=== PATIENT | female | born 1965 | race Asian ===

== ENCOUNTER 2016-07-24 14:27 | Outpatient (CLI) | payer OTHER | END 2016-07-24 14:28 | disposition home or self-care (01) | DX: Z12.31 Encounter for screening mammogram for malignant neoplasm of breast (principal) ==

== ENCOUNTER 2017-09-22 11:11 | Outpatient (CLI) | payer OTHER ==
--- NOTE | 2017-09-23 14:18 | Mammography Report ---
DIGITAL SCREENING MAMMOGRAM: 09/22/2017 CLINICAL INDICATION: A 52-year-old for screening. COMPARISON: 07/2016, 06/2015, 05/2014, 04/2013, 03/2012, 12/2010, 11/2009. TECHNIQUE: Routine CC and MLO projections as well as bilateral laterally-exaggerated craniocaudal views were obtained of the breasts. FINDINGS: Parenchymal tissue within both breasts is heterogeneously dense, which may lower the sensitivity of mammography; however, there are no dominant masses, suspicious microcalcifications, or secondary signs of malignancy. In comparison to the previous studies, there are no significant changes. IMPRESSION: NO MAMMOGRAPHIC EVIDENCE OF MALIGNANCY. NO SIGNIFICANT INTERVAL CHANGES. RECOMMENDATION: Screening mammography is recommended annually. BIRADS category 1 - negative. STANDARD QUALIFYING STATEMENTS: 1. This examination was reviewed with the aid of Computed-Aided Detection (CAD). 2. A negative or benign imaging report should not delay biopsy if clinically suspicious findings are present. Consider surgical consultation if warranted. More than 5% of cancers are not identified by imaging. 3. Dense breasts may obscure an underlying neoplasm. TD: 09/23/2017 14:17
== END 2017-09-22 11:12 | disposition home or self-care (01) ==
LOC: DI.N 11:11
PROVIDERS: ATTEND Family Medicine
DX: Z12.31 Encounter for screening mammogram for malignant neoplasm of breast (principal)
CPT/HCPCS: 77067

== ENCOUNTER 2018-09-27 13:50 | Outpatient (CLI) | payer OTHER ==
--- NOTE | 2018-09-28 09:23 | Mammography Report ---
Reason: SCREENING MAMMO Procedure Date: 09/27/2018 Accession Number: [id number] / [id number] Procedure: MGN - Screening Mammo Dig Bilat CPT Code: FULL RESULT: EXAM: Screening Mammo Dig Bilat DATE: 09/27/2018 2:22 PM CLINICAL HISTORY: Routine screening. No reported personal or family history of breast cancer. TECHNIQUE: Bilateral CC and MLO views were obtained. COMPARISON: 09/22/2017 through 06/14/2014 FINDINGS: The breasts demonstrate heterogeneously dense fibroglandular parenchyma bilaterally. Bilateral breasts: There are no suspicious masses, calcifications or areas of distortion. IMPRESSION: Negative examination RECOMMENDATION: Routine annual screening unless otherwise clinically indicated. BI-RADS CATEGORY 1: Negative STANDARD QUALIFYING STATEMENTS: 1. This examination was reviewed with the aid of Computer-Aided Detection (CAD). 2. A negative or benign imaging report should not preclude biopsy if clinically suspicious findings are present. 3. Dense breasts may obscure an underlying neoplasm. 4. This examination was reviewed without the aid of 3D breast imaging (tomosynthesis).
== END 2018-09-27 13:51 | disposition home or self-care (01) ==
LOC: DI.N 13:50
DX: Z12.31 Encounter for screening mammogram for malignant neoplasm of breast (principal)
CPT/HCPCS: 77067

== ENCOUNTER 2019-01-11 08:18 | Day surgery (SDC) | payer OTHER ==
[2019-01-11] MEDS ORDERED: LACTATED RINGERS 1,000 ML IV ONE (08:29)
[2019-01-11] MEDS ORDERED: MIDAZOLAM 2 MG/2 ML VIAL IVP ONE (09:38)
[2019-01-11] MEDS ORDERED: fentaNYL 100 MCG/2 ML VIAL IVP ONE (09:38)
[2019-01-11] MEDS ORDERED: LIDO GARGLE 30 ML BOTTLE PO ONE (09:45)
[2019-01-11] MEDS ORDERED: LIDO GARGLE 30 ML BOTTLE ONE (09:47)
[2019-01-11 10:22] VITALS: BP 131/85
== END 2019-01-11 08:19 | disposition home or self-care (01) ==
LOC: SDS 08:18
PROVIDERS: ATTEND Internal Medicine Gastroenterology
PROC: 0DB78ZX Excision of Stomach, Pylorus, Via Natural or Artificial Opening Endoscopic, Diagnostic (ICD-10-PCS; 2019-01-11)
PROC: 0DB58ZX Excision of Esophagus, Via Natural or Artificial Opening Endoscopic, Diagnostic (ICD-10-PCS; principal; 2019-01-11 09:45)
DX: K21.9 Gastro-esophageal reflux disease without esophagitis (principal); K29.50 Unspecified chronic gastritis without bleeding
CPT/HCPCS: 43239; A9270; J7120

== ENCOUNTER 2019-08-21 09:10 | Emergency (ER) | payer OTHER ==
--- NOTE | 2019-08-21 09:38 | ED Physician Documentation ---
History of Present Illness - Stated complaint Stated Complaint: FEMALE - Chief complaint Chief Complaint: UTI - Additonal information Additional information: This is a 53-year-old female presents with 2 complaints. First she developed a little bit of pain and burning with urination and some blood in her urine that began today. Second she had a cough for around 4 weeks now, and got better with treatment for bronchitis from her primary care provider but then has returned. It is nonproductive. She denies shortness of breath or chest pain. No leg swelling. No hemoptysis, no history of blood clots. She does feel like her heart is beating a bit fast this morning, which she has happens from time to time for her. She denies any history of abnormal heart rhythms or heart cardiac problems. She does have a history of GERD, she also has had a hysterectomy. No abdominal pain at this time, but last night she did have a bit little bit of suprapubic discomfort. 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 - Present Medications Home Medications: Ambulatory Orders Medication Instructions Recorded Confirmed Esomeprazole Magnesium [Nexium] 20 mg PO BID 01/10/19 01/10/19 Cefdinir 300 mg PO BID #14 capsule 08/21/19 - Allergies Allergies/Adverse Reactions: Allergies Allergy/AdvReac Type Severity Reaction Status Date / Time No Known Drug Allergies Allergy Verified 08/21/19 09:27 PD ED PE NORMAL - Vitals Vital signs reviewed: Yes - General General: Alert and oriented X 3, No acute distress - HEENT HEENT: PERRL - Neck Neck: Supple, no meningeal sign - Cardiac Cardiac: Other (Tachycardic, rate 110 on my examination, no murmurs or rubs.) - Respiratory Respiratory: Clear bilaterally - Abdomen Abdomen: Soft, Non tender, Non distended, Other (No flank pain to percussion bilaterally) - Derm Derm: Warm and dry - Extremities Extremities: No deformity, No edema, No calf tenderness / cord - Neuro Neuro: Alert and oriented X 3 - Psych Psych: Normal mood, Normal affect Results - Vitals Vitals: Vital Signs - 24 hr 08/21/19 08/21/19 09:24 11:03 Temperature 37.0 C Heart Rate 130 H 119 H Respiratory 20 16 Rate Blood Pressure 175/115 H 148/110 H O2 Saturation 99 99 Oxygen O2 Source Room air - EKG (time done) 10:05 Other comments: Other comments (Rate 113, rhythm sinus tachycardia, there is some T wave flattening in the inferior leads, no ST segment elevations or depressions. QTC is 485.) - Labs Labs: Laboratory Tests 08/21/19 09:50 Urine Color LT RED Urine Clarity HAZY Urine pH 6.5 Ur Specific Shaw <=1.005 Urine Protein TRACE Urine Glucose (UA) NEGATIVE Urine Ketones NEGATIVE Urine Occult Blood LARGE H Urine Nitrite NEGATIVE Urine Bilirubin NEGATIVE Urine Urobilinogen 0.2 (NORMAL) Ur Leukocyte Esterase SMALL H Urine RBC 0-5 Urine WBC 11-25 H Ur Squamous Epith Cells RARE Squamous Urine Bacteria Rare Ur Microscopic Review INDICATED Urine Culture Comments INDICATED - Rads (name of study) CXR Radiology: Other (No acute cardiopulmonary process) PD MEDICAL DECISION MAKING - ED course Complexity details: considered differential (Pneumonia, bronchitis, URI urinary tract infection, pyelonephritis, Lung mass, pleural effusion) ED course: Patient is tachycardic in triage, she is well-appearing on exam, she has a nontender abdominal exam, her urine does show signs of infection, she has no CVA tenderness or fever to suggest pyelonephritis. Her symptoms fit with cystitis and we will treat with a course of antibiotics. Regarding her cough, she has no chest pain, no shortness of breath, no leg swelling, no fever, normal oxygen saturation, making pneumonia unlikely, and chest x-ray is unremarkable. Given her tachycardia an EKG was obtained, shows sinus tachycardia without signs of ACS or tachydysrhythmia. On repeat examination patient continues to be well-appearing, heart rate 95-100 on my repeat evaluation. She continues to have no chest pain, no shortness of breath, no leg swelling, normal O2 saturation, making PE highly unlikely. She appears to have a URI/bronchitis and also cystitis, I discussed supportive care, return precautions and PCP follow-up and patient was discharged home in good condition Departure - Departure Disposition: 01 Home, Self Care Clinical Impression: Urinary tract infection Qualifiers: Urinary tract infection type: acute cystitis Hematuria presence: without hematuria Qualified Code(s): N30.00 - Acute cystitis without hematuria Instructions: ED UTI Cystitis Female Follow-Up: Melanie Alvarenga DO [Primary Care Provider] - Prescriptions: Cefdinir 300 mg PO BID #14 capsule Comments: You appear to have a urinary tract infection today. Please take the antibiotic as prescribed. Your chest x-ray did not show signs of pneumonia or other obvious problems with your lungs. You may use the Tessalon Perles that were prescribed to you by your primary care provider, you may also try tea and honey for your cough. If you are having worsening such as chest pain, shortness of breath, abdominal pain, or vomiting, please return to the emergency department Discharge Date/Time: 08/21/19 11:09
[2019-08-21 10:00] LABS: BILIRUBIN,URINE NEGATIVE (NEGATIVE); GLUCOSE, URINE (UA) NEGATIVE (NEGATIVE); KETONES,URINE (UA) NEGATIVE (NEGATIVE); LEUKOCYTE ESTERASE, URINE SMALL (NEGATIVE); NITRITE,URINE NEGATIVE (NEGATIVE); OCCULT BLOOD,URINE LARGE (NEGATIVE); PH,URINE 6.5 PH (5.0-7.5); PROTEIN,URINE TRACE mg/dL (NEGATIVE); UROBILINOGEN,URINE 0.2 (NORMAL) E.U./dL (NORMAL)
[2019-08-21 10:01] LABS: CLARITY,URINE HAZY (CLEAR)
[2019-08-21 10:16] LABS: RBC,URINE 0-5 /HPF (0-5)
[2019-08-21 10:17] LABS: BACTERIA,URINE Rare /HPF (None Seen); SQUAMOUS EPITHELIAL CELL,UR RARE Squamous (<= Few)
--- NOTE | 2019-08-21 10:40 | XRAY Report ---
Reason: cough Procedure Date: 08/21/2019 Accession Number: [id number] / [id number] Procedure: XR - Chest 2 View X-Ray CPT Code: 38698 Final Report FULL RESULT: EXAM: CHEST RADIOGRAPHY EXAM DATE: 08/21/2019 10:03 AM. CLINICAL HISTORY: Cough. COMPARISON: None. TECHNIQUE: 2 views. FINDINGS: Lungs/Pleura: No focal opacities. No effusions. Mediastinum: Heart and mediastinal contours are unremarkable. Other: None. IMPRESSION: No acute radiographic cardiopulmonary process RADIA
[2019-08-21] MEDS ORDERED: cephALEXin 250 MG CAPSULE PO STA (10:46)
[2019-08-21 11:04] VITALS: BP 148/110
== END 2019-08-21 11:09 | disposition home or self-care (01) ==
LOC: ED 09:10
DX: N30.00 Acute cystitis without hematuria (principal); R00.0 Tachycardia, unspecified; R05 Cough
CPT/HCPCS: 71046; 81001; 87086; 93005; 99284; A9270; 81003

== ENCOUNTER 2020-03-20 08:03 | Outpatient (CLI) | payer OTHER ==
--- NOTE | 2020-03-21 14:35 | Mammography Report ---
UNILATERAL LEFT DIGITAL DIAGNOSTIC MAMMOGRAM 3D/2D: 03/20/2020 CLINICAL: Patient returns today to evaluate a focal asymmetry in the left breast. Comparison is made to exams dated: 02/14/2020 mammogram, 09/27/2018 mammogram, 09/22/2017 mammogram, and 07/24/2016 mammogram - [facility]. There are scattered fibroglandular elements in l eft breast. There is a 5 mm oval mass with a spiculated margin in the left breast at 1 o'clock middle depth. Thi s is seen in additional views. There is architectural distortion associated with the mass. No other significant masses or calcifications are seen in the breast. IMPRESSION: INCOMPLETE: NEEDS ADDITIONAL IMAGING EVALUATION The 5 mm oval mass in the left breast is indeterminate. An ultrasound is recommended. This exam was interpreted at Station ID: [id number]. NOTE: For mammograms, a report in lay terms will be sent to the patient. Approximately 15% of breast malignancies will not be visualized mammographically. In the management of a palpable breast mass, a negative mammogram must not discourage biopsy of a clinically suspicious lesion. SUMMARY: Targeted ultrasound is recommended for further evaluation and will be scheduled immediately following this exam. Electronically Signed By: Carroll white/adrienne:03/20/2020 10:18:03 ACR BI-RADS Category 0: Incomplete 3340F PARENCHYMAL PATTERN: (A) - The breast(s) demonstrate(s) scattered fibroglandular densities. BI-RADS CATEGORY: (0) - 0 Ultrasound [id number] Immediate follow-up LATERALITY: (L)
--- NOTE | 2020-03-21 14:35 | Ultrasound Report ---
LIMITED ULTRASOUND OF LEFT BREAST AND AXILLA: 03/20/2020 CLINICAL: Patient returns today to evaluate an architectural distortion in the left breast. Comparison is made to exams dated: 03/20/2020 mammogram, 02/14/2020 mammogram, 09/27/2018 mammogram, and 09/22/2017 mammogram - [facility]. Ultrasound of the left breast 12-1 o'clock, and axilla regions was performed. Fung scale images of the real-time examination were reviewed. There is a 0.3 cm x 0.5 cm x 0.2 cm irregular mass with a spiculated margin in the left breast at 1 o 'clock middle depth 4 cm from the nipple. This irregular mass is hypoechoic with an echogenic bounda ry and posterior acoustic shadowing. This correlates with mammography findings. No significant abnormalities were seen sonographically in the left axilla. IMPRESSION: SUSPICIOUS OF MALIGNANCY The 0.3 cm x 0.5 cm x 0.2 cm irregular mass in the left breast is at a high suspicion for malignancy. An ultrasound guided biopsy is recommended. The findings and recommendations were discussed with t he patient in person by Dr. Sarkar at the time of the exam. This exam was interpreted at Station ID: [id number]. Electronically Signed By: Carroll white/adrienne:03/20/2020 10:21:44 Ultrasound BI-RADS: 4c High suspicion of malignancy BI-RADS CATEGORY: (4c) - High Susp None [id number] Immediate follow-up LATERALITY: ()
== END 2020-03-20 08:04 | disposition home or self-care (01) ==
LOC: DI 08:03
PROVIDERS: ATTEND Family Medicine
DX: N63.21 Unspecified lump in the left breast, upper outer quadrant (principal)
CPT/HCPCS: 76642

== ENCOUNTER 2020-04-04 11:55 | Outpatient (CLI) | payer OTHER ==
[2020-04-04] MEDS ORDERED: BUFFERED LIDOCAINE 10 ML SYRINGE ONE (11:57)
[2020-04-04] MEDS ORDERED: BUFFERED LIDOCAINE 10 ML SYRINGE IU ONE (16:50)
--- NOTE | 2020-04-09 08:33 | Mammography Report ---
UNILATERAL LEFT DIGITAL DIAGNOSTIC MAMMOGRAM 3D/2D: 04/04/2020 CLINICAL: Post left breast ultrasound biopsy clip placement imaging. Comparison is made to exams dated: 03/20/2020 ultrasound, 03/20/2020 mammogram, 02/14/2020 mammogram, 09/17 mammogram, 09/22/2017 mammogram, and 07/24/2016 mammogram - [facility]. There a re scattered fibroglandular elements in left breast. There is a marker clip in the appropriate position in the left breast 1 o'clock position. This marke r clip placement is at the biopsy site. IMPRESSION: POST PROCEDURE MAMMOGRAM FOR MARKER PLACEMENT There was a successful marker clip placement in the left breast 1 o'clock position central to the nip ple seen on the craniocaudal view only. This exam was interpreted at Station ID: Unknown. NOTE: For mammograms, a report in lay terms will be sent to the patient. Approximately 15% of breast malignancies will not be visualized mammographically. In the management of a palpable breast mass, a negative mammogram must not discourage biopsy of a clinically suspicious lesion. Electronically Signed By: Ligia Talley M.D. [facility]/:04/06/2020 15:32:11 ACR BI-RADS Category Post-procedure mammogram for marker placement PARENCHYMAL PATTERN: (A) - The breast(s) demonstrate(s) scattered fibroglandular densities. BI-RADS CATEGORY: () - Unspecified - other recall n/a LATERALITY: (B)
--- NOTE | 2020-04-11 07:22 | Ultrasound Report ---
ULTRASOUND GUIDED BIOPSY LEFT BREAST WITH MARKING DEVICE INSERTED AND POST DIGITAL MAMMOGRAPHIC IMAGI N04/04/2020 CLINICAL: Left breast mass. PATIENT CONSENT: Risks (minor bleeding, infection, vasovagal reaction and repeat procedure), benefits and alternatives were explained to the patient and written informed consent was obtained. Correlation is made to exams dated: 04/04/2020 mammogram, 03/20/2020 ultrasound, 03/20/2020 mammogram, mammogram, 09/27/2018 mammogram, and 09/22/2017 mammogram - [facility]. An ultrasound guided biopsy using real-time ultrasound was performed for the 0.4 cm x 0.3 cm x 0.3 cm indistinct irregular shaped mass located in the left breast at 12 o'clock posterior depth 4 cm from the nipple. This was described on the previous ultrasound report. The skin was prepped in the usual manner. Local anesthetic was administered to the access site. The abnormality was approached from the lateral aspect. A 12 gauge biopsy needle was placed adjacent to the abnormality under ultrasound guidance. Once the needle was documented to be in the correct loca tion, four specimens were obtained using a BARD biopsy device. A titanium clip was inserted into the biopsy cavity. Post procedure digital mammographic imaging was obtained. The specimens were sent t o the laboratory for pathological analysis. IMPRESSION: ULTRASOUND GUIDED BIOPSY MALIGNANT Ultrasound guided biopsy of the 0.4 cm mass in the left breast at 12 o'clock posterior depth 4 cm fro m the nipple was successful. Pathology indicates malignant invasive ductal carcinoma (ID). Pathology results are concordant with imaging findings. A surgical/oncologic consultation is recommended. This exam was interpreted at Station ID: [id number]. Ligia Toure M.D. [facility]/:04/10/2020 08:47:12 BI-RADS CATEGORY: () - Unspecified - other recall n/a LATERALITY: (B)
== END 2020-04-04 11:56 | disposition home or self-care (01) ==
LOC: DI 11:55
PROVIDERS: ATTEND Family Medicine
DX: C50.812 Malignant neoplasm of overlapping sites of left female breast (principal); Z17.0 Estrogen receptor positive status [ER+]
CPT/HCPCS: 19083

== ENCOUNTER 2020-05-12 08:23 | Outpatient (CLI) | payer OTHER ==
[2020-05-12] MEDS ORDERED: GADOBUTROL 10 MMOL/10 ML VIAL IV ONE (11:36)
--- NOTE | 2020-05-14 14:48 | MRI Report ---
BREAST MRI OF BOTH BREASTS: 05/12/2020 CLINICAL: Short term follow up for the left breast. Patient returns for additional imaging over a cindy pected mass in the left breast. Comparison is made to exams dated: 04/04/2020 ultrasound biopsy, 03/20/2020 ultrasound, and 02/14/2020 [facility]. 7 cc of gadolinium contrast was injected. Axial T1, T2, sagittal T1, and pre and post contrast T1 im ages were obtained. Bilateral background breast enhancement is minimal. Right breast: No suspicious enhancing mass or [id number]-[id number] enhancement. Left breast: There is artifact in the left breast at the 1:00 position middle to posterior depth carlita esponding to the biopsy proven neoplasm, however, there is no suspicious enhancement, possibly obscur ed by artifact, possibly removed by biopsy. Other than minimal background parenchymal enhancement, th ere are no other enhancing foci or masses in the left breast. No rau-[id number]-[id number] enhancement. No axillary or internal mammary chain adenopathy. No suspicious liver or osseous lesions visible. Inc idental note made of small pericardial effusion. IMPRESSION: KNOWN BIOPSY PROVEN MALIGNANCY 1. Biopsy marker present in the left 1:00 position without suspicious surrounding enhancement, likel y due to small size of known malignancy. 2. No other suspicious foci of enhancement in either breast. 3. No adenopathy. 4. Surgical/ oncological follow up recommended. This exam was interpreted at Station ID: [id number]. Electronically Signed By: Desiree amin/:05/14/2020 13:05:15 ACR BI-RADS Category 6: Known biopsy proven malignancy 3346F BI-RADS CATEGORY: (6) - 6 Unspecified - other recall n/a LATERALITY: (B)
== END 2020-05-12 08:24 | disposition home or self-care (01) ==
LOC: DI 08:23
PROVIDERS: ATTEND Surgery
DX: C50.912 Malignant neoplasm of unspecified site of left female breast (principal)
CPT/HCPCS: 77049

== ENCOUNTER 2020-05-24 08:52 | Outpatient (CLI) | payer OTHER | END 2020-05-24 08:53 | disposition home or self-care (01) | LOC: LAB 08:52 | PROVIDERS: ATTEND Surgery | DX: Z01.812 Encounter for preprocedural laboratory examination (principal); C50.912 Malignant neoplasm of unspecified site of left female breast; Z20.828 Contact with and (suspected) exposure to other viral communicable diseases | CPT/HCPCS: 36415; 86769 ==

== ENCOUNTER 2020-05-28 08:48 | Day surgery (SDC) | payer OTHER ==
[~2020-05-28 08:48] MED LIST: CEFAZOLIN SODIUM IN 0.9 % NACL 2 GM/100 ML BAG IV ONE
[2020-05-28] MEDS ORDERED: LACTATED RINGERS 1,000 ML IV ONE ×2 (09:00→14:40)
--- NOTE | 2020-05-28 12:36 | Nuclear Medicine Report ---
PROCEDURE: Lymph Node Scintigraphy INDICATIONS: LT BREAST CANCER RADIOPHARMACEUTICAL: 0.5-1.0 mCi Millipore filtered Tc-99m sulfur colloid. TECHNIQUE: The area around the nipple was prepped and draped in a sterile fashion. Tc-99m sulfur colloid was in jected intra-dermally in the outer edge of the areola in the left breast. Images were obtained subse quently. A body contour outline was obtained. FINDINGS: There is/are lymph node(s) in the ipsilateral axilla. IMPRESSION: Administration of radiotracer into the left breast periareolar region for intra-operativ e sentinel lymph node localization, identifying no sentinel node. Reviewed by: Bobo Johnston MD on 05/28/2020 12:35 PM PST Approved by: Bobo Johnston MD on 05/28/2020 12:35 PM PST Station ID: [id number]
[2020-05-28] MEDS ORDERED: LIDOCAINE 1% 50 ML MDV ONE (12:41)
[2020-05-28] MEDS ORDERED: BUPIVACAINE 0.5%-EPI 1:200000 PF 30 ML VIAL ONE (12:42)
--- NOTE | 2020-05-28 12:46 | ANESTHESIA ---
Pre-Anesthesia VS, & Labs - Diagnosis L breast CA - Procedure L breast lumpectomy, sentinel node biopsy Vital Signs: Temp Pulse Resp BP Pulse Ox 36.8 C 103 H 20 149/96 H 100 05/28/20 09:06 05/28/20 09:06 05/28/20 09:06 05/28/20 09:06 05/28/20 09:06 Height: 5 ft 10 in Weight (kg): 71 kg Body Mass Index: 22.4 BMI Classification: Healthy weight - NPO >8 hours Last Fluid Intake: am sips - Is Patient ?: No - Lab Results Lab results reviewed: Yes Home Medications and Allergies Home Medications: Ambulatory Orders Pantoprazole Sodium 40 mg PO DAILY 05/23/20 Lisinopril [Zestril] 5 mg PO DAILY 04/27/20 Pravastatin [Pravachol] 20 mg PO DAILY 04/27/20 Pantoprazole Sodium 40 mg PO DAILY 05/23/20 Allergies/Adverse Reactions: Allergies Allergy/AdvReac Type Severity Reaction Status Date / Time No Known Drug Allergies Allergy Verified 05/28/20 09:09 Anes History & Medical History - Anesthetic History Anesthesia Complications: reports: No previous complications (c/o sore throat after hysterectomy, no report of difficult intubation) Family history of Anesthesia Complications: Denies Family history of Malignant Hyperthermia: Denies - Medical History Cardiovascular: reports: Hypertension, High cholesterol Pulmonary: reports: None Gastrointestinal: reports: GERD Urinary: reports: None Musculoskeletal: reports: None Endocrine/Autoimmune: reports: None Skin: reports: None Smoking Status: Former smoker - Surgical History General: Colonoscopy, EGD Gynecologic: Hysterectomy Exam General: Alert, Oriented x3, Cooperative Dental: Dentures full Upper, Dentures full Lower Mouth Openin Fingerbreadth Neck Mobility: Normal Mallampati classification: II Thyromental Distance: 4-6 cm Respiratory: Lungs clear, Normal breath sounds, No respiratory distress Cardiovascular: Regular rate Neurological: Normal speech Mental/Cognitive Status: Alert/Oriented X3, Normal for patient Cognitive Status: Within normal limits Plan Anesthesia Type: General Consent for Procedure(s) Verified and Reviewed: Yes Code Status: Attempt Resuscitation ASA classification: 3-Severe systemic disease Is this case an emergency?: No
[2020-05-28] MEDS ORDERED: MIDAZOLAM 2 MG/2 ML VIAL IVP ONE (13:34)
[2020-05-28] MEDS ORDERED: LIDOCAINE-MPF 2% 5 ML VIAL IM ONE (13:34)
[2020-05-28] MEDS ORDERED: ONDANSETRON 4 MG/2 ML VIAL IVP ONE (13:34)
[2020-05-28] MEDS ORDERED: DEXAMETHASONE 4 MG/ML VIAL IVP ONE (13:34)
[2020-05-28] MEDS ORDERED: ACETAMINOPHEN 1,000 MG/100 ML 100 ML IV ONE ×2 (13:34→14:53)
[2020-05-28] MEDS ORDERED: PROPOFOL 200 MG/20 ML VIAL IVP ONE (13:34)
[2020-05-28] MEDS ORDERED: fentaNYL 100 MCG/2 ML VIAL IVP ONE (13:34)
[2020-05-28] MEDS ORDERED: METHYLENE BLUE 0.5% 50 MG/10 ML AMPULE ONE ×2 (13:44→13:51)
[2020-05-28] MEDS ORDERED: BUPIVACAINE 0.5%-EPI 1:200000 PF 30 ML VIAL SUBQ ONE ×2 (13:48)
[2020-05-28] MEDS ORDERED: LIDOCAINE 1%-EPI 1:100000 30 ML MDV SUBQ ONE ×2 (13:48)
[2020-05-28] MEDS ORDERED: METHYLENE BLUE 0.5% 50 MG/10 ML AMPULE IR ONE (13:53)
[2020-05-28] MEDS ORDERED: ePHEDrine 50 MG/ML VIAL IVP PRN (14:24)
[2020-05-28] MEDS ORDERED: NALOXONE 0.4 MG/ML VIAL IVP PRN (14:24)
[2020-05-28] MEDS ORDERED: ATROPINE ABBOJECT 1 MG/10 ML SYRINGE IVP PRN (14:24)
[2020-05-28] MEDS ORDERED: HYDROmorphone 0.5 MG/0.5 ML SYRINGE IVP PRN (14:24)
[2020-05-28] MEDS ORDERED: fentaNYL 100 MCG/2 ML VIAL IVP PRN (14:24)
[2020-05-28] MEDS ORDERED: MORPHINE 2 MG/ML CARPUJECT IVP PRN (14:24)
[2020-05-28] MEDS ORDERED: METOCLOPRAMIDE 10 MG/2 ML VIAL IVP PRN (14:24)
[2020-05-28] MEDS ORDERED: ONDANSETRON 4 MG/2 ML VIAL IVP PRN ×2 (14:24→14:42)
--- NOTE | 2020-05-28 14:36 | OPERATIVE REPORT ---
Operative Report - General Procedure Date: 05/28/20 Planned Procedure: Left breast lumpectomy and sentinel node biopsy Pre-Op Diagnosis: Small invasive carcinoma of the left breast Procedure Performed: Left breast lumpectomy. No sentinel node dissection done Post Op Diagnosis: Small invasive carcinoma of the left breast - Procedure Note Primary Surgeon: Néstor Anesthesia Provider: BAMBI Rodriguez Anesthesia Technique: General LMA Pathology: Left breast specimen to pathology in formalin Findings: 1.[place]omira node mapping reveals that the patient mapped to the mediastinal nodes. Uptake up to 500 counts per second in the mediastinal region and 0 counts per second in the axilla. 2.Clip, wire, and mass obtained within the surgical specimen. Complications: Unable to complete sentinel node dissection as the patient mapped to the mediastinum and not to the left axilla. - Other Other Information/Narrative: After obtaining informed consent, the patient was brought to the operating room and placed in the supine position on the operating table. Following successful induction of general endotracheal anesthesia, appropriate padding of all bony prominences, and placement of appropriate monitors, the left breast was prepped and draped in the standard surgical fashion. A timeout was held per scope protocol. All elements of the surgical safety checklist were followed before, during, and after the procedure. We began the procedure with An attempt to map the sentinel node. Using the neoprobe, the patient's breast mediastinum and axilla were all evaluated. The breast exhibited counts of greater than 5000, the mediastinum and the area over the mediastinal nodes exhibited counts of up to 500. Count in the left axilla was no greater then 2. Due to these findings, we aborted the plans for axillary sentinel node dissection.Proceeded with left breast lumpectomy. We turned our attention to the left breast mass.The position of the wire within the breast was noted on mammogram. Measurements were made from the center of the mass and then marked on the skin as guides for approximate margins. The area over the mass and in the periareolar region was infiltrated with a mixture of local anesthetics to cry to field block. A periareolar incision was then created in the medial aspect of the left nipple areola complex. This was carried through the skin to the marked margin. The mass was carefully dissected sharply from the dermis anteriorly and from the muscle posteriorly. The entire mass was removed sharply using the skin markings as guides to ensure an adequate margin. The retromammary bursa was not adherent to the underlying muscle. The mass was reviewed moved in a single piece in a medial to lateral fashion. It was marked with a short stitch superior, long stitch lateral, and double stitch anterior. It was finally liberated sharply and delivered into the field. The wound was checked for hemostasis. It was irrigated again with warm water. The biopsy cavity was then marked for orientation with clips peripherally and centrally.The wound was then closed in 2 layers with Vicryl and Monocryl sutures. All sponge, needle, and instrument counts were correct at the conclusion of the case. The patient was let awakened anesthesia without difficulty and taken to the postanesthesia care unit in good condition.
[2020-05-28] MEDS ORDERED: oxyCODONE 5 MG TABLET PO PRN (14:42)
[2020-05-28] MEDS ORDERED: IBUPROFEN 600 MG TABLET PO PRN (14:42)
[2020-05-28] MEDS ORDERED: ACETAMINOPHEN 325 MG TABLET PO PRN (14:42)
[2020-05-28] MEDS ORDERED: LACTATED RINGERS 1,000 ML IV SCH (15:00)
--- NOTE | 2020-05-28 15:19 | ANESTHESIA POST OP EVALUATION ---
Anesthesia Post Eval - Post Anesthesia Eval Vitals: Last Vital Signs Temp 36.6 C 05/28/20 15:07 Pulse 71 05/28/20 15:07 Resp 16 05/28/20 15:07 BP 147/108 H 05/28/20 15:07 Pulse Ox 100 05/28/20 15:07 CV Function Including HR & BP: positive: Stable Pain Control: positive: Satisfactory Nausea & Vomiting: positive: Negative Mental Status: positive: Baseline Respiratory Status: Airway Patent Hydration Status: Satisfactory Anesthesia Complications: positive: None
[2020-05-28 15:28] VITALS: BP 133/91
[2020-05-28] MEDS ORDERED: ONDANSETRON ODT 4 MG TABLET ONE (15:47)
--- NOTE | 2020-05-29 06:58 | Ultrasound Report ---
ULTRASOUND GUIDED WIRE LOCALIZATION LEFT BREAST WITH POST MAMMOGRAPHIC IMAGING AND RADIOGRAPHIC SPECI MEN IMAGIN05/28/2020 CLINICAL: Left breast ultrasound guided wire localization. Correlation is made to exams dated: 05/28/2020 mammogram, 05/12/2020 breast MRI, 04/04/2020 ultrasound biopsy, 04/04/2020 mammogram, 03/20/2020 ultrasound, and 03/20/2020 mammogram - [facility]. A wire localization using ultrasound guidance was performed for the concerning 0.3 cm x 0.2 cm x 0.3 cm indistinct irregular shaped mass located in the left breast at 12 o'clock anterior depth. This wa s described on the previous ultrasound report. The skin was prepped in the usual manner. Local anes thetic was administered to the access site. The localization was approached from the lateral aspect. A J-hook wire was inserted into the targeted area under ultrasound guidance. A sterile dressing wa s applied to the access site. Post placement mammographic imaging demonstrates the tip rests in the targeted area. IMPRESSION: WIRE LOCALIZATION Wire localization for the 0.3 cm x 0.2 cm x 0.3 cm mass in the left breast at 12 o'clock anterior dep th was successful. The imaged specimen includes the lesion, a biopsy clip, and the distal portion of the localization wire. A surgical excision and a specimen radiograph were performed. This exam was interpreted at Station ID: [id number]. Bobo Johnston M.D. [facility]/:05/28/2020 15:44:35 BI-RADS CATEGORY: () - Unspecified - other recall n/a LATERALITY: (B)
--- NOTE | 2020-05-29 06:58 | Mammography Report ---
UNILATERAL LEFT DIGITAL DIAGNOSTIC MAMMOGRAM: 05/28/2020 CLINICAL: Preop for left breast lumpectomy. Comparison is made to exams dated: 04/04/2020 mammogram, 03/20/2020 mammogram, 02/14/2020 mammogram, 09/17 mammogram, 09/22/2017 mammogram, and 07/24/2016 mammogram - [facility]. There a re scattered fibroglandular elements in left breast. There is a mass in the left breast at 12 o'clock anterior depth, previously biopssied and now localiz ed for excision today. The localization wire encircles the site of prior biopsy as indicated by the biopsy marker clip. IMPRESSION: POST PROCEDURE MAMMOGRAM FOR MARKER PLACEMENT Excellent wire localization of the area needing surgical excision, to be performed today. This exam was interpreted at Station ID: [id number]. NOTE: For mammograms, a report in lay terms will be sent to the patient. Approximately 15% of breast malignancies will not be visualized mammographically. In the management of a palpable breast mass, a negative mammogram must not discourage biopsy of a clinically suspicious lesion. Electronically Signed By: Bobo Johnston M.D. [facility]/:05/28/2020 15:47:51 ACR BI-RADS Category Post-procedure mammogram for marker placement PARENCHYMAL PATTERN: (A) - The breast(s) demonstrate(s) scattered fibroglandular densities. BI-RADS CATEGORY: () - Unspecified - other recall n/a LATERALITY: (B)
--- NOTE | 2020-05-29 06:58 | Mammography Report ---
SPECIMEN LEFT BREAST: 05/28/2020 CLINICAL: Left breast specimen. Correlation is made to exam dated: 05/28/2020 localization - [facility]. A surgical specimen was imaged for the concerning previous biopsy site located in the left breast at 12 o'clock anterior depth. This was described on the previous mammography and ultrasound reports. IMPRESSION: SPECIMEN The imaged specimen includes the lesion, a biopsy clip, and the distal portion of the localization wi re. This exam was interpreted at Station ID: [id number]. Bobo Johnston M.D. [facility]/:05/28/2020 15:50:15 BI-RADS CATEGORY: () - Unspecified - other recall n/a LATERALITY: (B)
== END 2020-05-28 08:49 | disposition home or self-care (01) ==
LOC: SDS 08:48
PROVIDERS: ATTEND Surgery
PROC: 0HBU0ZZ Excision of Left Breast, Open Approach (ICD-10-PCS; principal; 2020-05-28 13:30)
DX: C50.412 Malignant neoplasm of upper-outer quadrant of left female breast (principal); Z17.0 Estrogen receptor positive status [ER+]; I10 Essential (primary) hypertension
CPT/HCPCS: 19285; 19301; 76098; 77065; 78195; J0131; J0690; J7120; Q0162

== ENCOUNTER 2020-10-05 10:51 | Outpatient (CLI) | payer OTHER ==
--- NOTE | 2020-10-05 16:12 | DEXA Report ---
PROCEDURE: Dexa Spine and/or Hip INDICATIONS: POST MENOPAUSAL TECHNIQUE: Dual energy x-ray absorptiometry (DXA) was performed on a [employer]noobe System. Regions measur ed are the AP Spine, femoral neck, and if needed forearm. COMPARISON: None. FINDINGS: Lumbar Spine: Bone Mineral Density 1.153 g/cm/cm,T score -0.2, normal Left Hip: Bone Mineral Density 0.842 g/cm/cm,T score -1.3, osteopenia Left Femoral Neck: Bone Mineral Density 0.982 g/cm/cm, T score -0.4, normal (T score greater or equal to -1.0: NORMAL) (T score from -1.1 to -2.4: OSTEOPENIA) (T score less than or equal to -2.5 to: OSTEOPOROSIS) Impression: 1. Osteopenia raises the patient's 10 year fracture risk. Patients with diagnosis of osteoporosis or osteopenia should have regular bone mineral density assess ment. For those eligible for Medicare, routine testing is allowed once every 2 years. Testing frequ ency can be increased for patients who have rapidly progressing disease or for those who are receivin g medical therapy to restore bone mass. Reviewed by: Desiree Qiu MD on 10/05/2020 4:10 PM PDT Approved by: Desiree Qiu MD on 10/05/2020 4:10 PM PDT Station ID: [id number]
== END 2020-10-05 10:52 | disposition home or self-care (01) ==
LOC: DI 10:51
PROVIDERS: ATTEND Internal Medicine Hematology & Oncology
DX: M85.89 Other specified disorders of bone density and structure, multiple sites (principal); Z78.0 Asymptomatic menopausal state

== ENCOUNTER 2021-01-16 10:08 | Emergency (ER) | payer OTHER ==
--- NOTE | 2021-01-16 10:27 | ED Physician Documentation ---
PD HPI ABD PAIN - Stated complaint Stated Complaint: L SIDE PX/SENT BY - Chief complaint Chief Complaint: Abd Pain - History obtained from History obtained from: Patient - Additional information Additional information: 55-year-old woman with history of breast cancer in remission hysterectomy without oophorectomy presents with about 3 to 4 days of left lower quadrant and left flank pain. It is associated with a feeling of having to push harder to urinate, but no dysuria. No fevers. She denies changes in bowel movements or nausea. Seen at urgent care and sent to the ED for imaging. Noted to be tachycardic which she thinks is due to anxiety. 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 - Present Medications Home Medications: Ambulatory Orders Medication Instructions Recorded Confirmed Lisinopril [Zestril] 5 mg PO DAILY 04/27/20 01/16/21 Pravastatin [Pravachol] 20 mg PO DAILY 04/27/20 01/16/21 Pantoprazole Sodium 40 mg PO DAILY 05/23/20 01/16/21 Anastrozole 1 mg PO DAILY #90 tablet 08/07/20 01/16/21 Azithromycin [Zithromax] 1 tab PO DAILY #4 tab 01/16/21 - Allergies Allergies/Adverse Reactions: Allergies Allergy/AdvReac Type Severity Reaction Status Date / Time No Known Drug Allergies Allergy Verified 01/16/21 10:14 - Social History Does the pt smoke?: No Smoking Status: Former smoker PD ED PE NORMAL - Vitals Vital signs reviewed: Yes - General General: Alert and oriented X 3, No acute distress - HEENT HEENT: PERRL, EOMI - Neck Neck: Supple, no meningeal sign, No bony TTP - Cardiac Cardiac: Other (Tachycardic but regular without murmur) - Respiratory Respiratory: No respiratory distress, Clear bilaterally - Abdomen Abdomen: Other (Tenderness in the left lower quadrant without surgical signs) - Back Back: No CVA TTP, No spinal TTP - Derm Derm: Normal color, Warm and dry - Extremities Extremities: No edema, No calf tenderness / cord - Neuro Neuro: Alert and oriented X 3, Normal speech Results - Vitals Vitals: Vital Signs - 24 hr 01/16/21 01/16/21 10:11 12:21 Temperature 36.2 C L 37.2 C Heart Rate 138 H 96 Respiratory 16 16 Rate Blood Pressure 149/123 H 142/88 H O2 Saturation 97 100 Oxygen O2 Source Room air - EKG (time done) 1027 Rate: Rate (enter#) (121) Rhythm: Sinus tachycardia [place]: Normal Intervals: Normal AL QRS: Normal Ischemia: Non specific changes. No: ST elevation c/w ischemia, ST depression - Labs Labs: Laboratory Tests 01/16/21 01/16/21 01/16/21 10:20 10:30 10:30 WBC 4.9 RBC 4.85 Hgb 14.4 Hct 43.1 MCV 88.9 MCH 29.7 MCHC 33.4 RDW 12.3 Plt Count 259 MPV 8.6 Neut # (Auto) 3.3 Lymph # (Auto) 1.1 L [place] # (Auto) 0.3 Eos # (Auto) 0.1 Baso # (Auto) 0.0 Absolute Nucleated RBC 0.00 Nucleated RBC % 0.0 Sodium 139 Potassium 3.8 Chloride 102 Carbon Dioxide 25 Anion Gap 12.0 BUN 15 Creatinine 0.7 Estimated GFR (MDRD) 86 L Glucose 159 H Calcium 9.6 Total Bilirubin 0.6 AST 19 ALT 22 Alkaline Phosphatase 71 Total Protein 7.9 Albumin 4.8 Globulin 3.1 Albumin/Globulin Ratio 1.5 Lipase 41 Urine Color LIGHT YELLOW Urine Clarity CLEAR Urine pH 6.0 Ur Specific [place] 1.010 Urine Protein NEGATIVE Urine Glucose (UA) NEGATIVE Urine Ketones NEGATIVE Urine Occult Blood NEGATIVE Urine Nitrite NEGATIVE Urine Bilirubin NEGATIVE Urine Urobilinogen 0.2 (NORMAL) Ur Leukocyte Esterase NEGATIVE Ur Microscopic Review NOT INDICATED Urine Culture Comments NOT INDICATED - Rads (name of study) CT A/P Radiology: EMP read contemporaneously (Appearance of the transverse and descending colon, incomplete distention versus colitis. Irregular gallbladder appearance, ultrasound recommended) PD MEDICAL DECISION MAKING - ED course ED course: 55-year-old woman with left lower quadrant pain. Found to have colitis on CT. Last colonoscopy was 5 to 6 years ago so repeat was urged. There was an abnormality of the gallbladder on the CT. Discussed this with the patient and offered either ultrasound today versus she could have this done as an outpatient. She opted to have it done today, and this was consistent with adenomyomatosis of the gallbladder. Discussed that this is a benign process and unless she is having pain on that side or jaundice no specific follow-up was necessary. She given Zithromax for the colitis. She declined prescription pain medication. Departure - Departure Disposition: 01 Home, Self Care Clinical Impression: Colitis, Adenomyomatosis of gallbladder Condition: Good Record reviewed to determine appropriate education?: Yes Instructions: ED Gastroenteritis Bacterial Prescriptions: Azithromycin [Zithromax] 1 tab PO DAILY #4 tab Comments: Your symptoms today are from the colitis. This should get better with the antibiotics, return if worsening or if not better in a few days. As discussed based on this diagnosis you do need to repeat ultrasound colonoscopy in about 2 months time. You can discuss this with your physician. You did have an abnormal appearance of your gallbladder on CT and we performed an ultrasound today which showed adenomyomatosis of the gallbladder. This is a benign process and no specific follow-up is necessary unless you were to develop jaundice or right-sided abdominal pain. Return for for new or worsening symptoms.
[2021-01-16 10:30] LABS: BILIRUBIN,URINE NEGATIVE (NEGATIVE); GLUCOSE, URINE (UA) NEGATIVE (NEGATIVE); KETONES,URINE (UA) NEGATIVE (NEGATIVE); LEUKOCYTE ESTERASE, URINE NEGATIVE (NEGATIVE); NITRITE,URINE NEGATIVE (NEGATIVE); OCCULT BLOOD,URINE NEGATIVE (NEGATIVE); PROTEIN,URINE NEGATIVE (NEGATIVE); UROBILINOGEN,URINE 0.2 (NORMAL) E.U./dL (NORMAL)
[2021-01-16 10:32] LABS: CLARITY,URINE CLEAR (CLEAR)
[2021-01-16 10:36] LABS: BASOPHILS % (AUTO) 0.6 %; EOSINOPHILS # (AUTO) 0.1 10^3/uL (0.0-0.7); EOSINOPHILS % (AUTO) 1.2 %; HCT - HEMATOCRIT 43.1 % (37.0-47.0); HGB - HEMOGLOBIN 14.4 g/dL (12.0-16.0); LYMPHOCYTES # (AUTO) 1.1 10^3/uL (1.5-3.5); LYMPHOCYTES % (AUTO) 23.3 %; MEAN CORPUSCULAR HEMOGLOBIN 29.7 pg (27.0-31.0); MEAN CORPUSCULAR HGB CONC 33.4 g/dL (32.0-36.0); MEAN CORPUSCULAR VOLUME 88.9 fL (81.0-99.0); MEAN PLATELET VOLUME 8.6 fL (7.9-10.8); MONOCYTES # (AUTO) 0.3 10^3/uL (0.0-1.0); NEUTROPHILS # (AUTO) 3.3 10^3/uL (1.5-6.6); NEUTROPHILS % (AUTO) 68.7 %; PLT - PLATELET COUNT 259 10^3/uL (130-450); RED BLOOD COUNT 4.85 10^6/uL (4.20-5.40); RED CELL DISTRIBUTION WIDTH 12.3 % (12.0-15.0); WHITE BLOOD COUNT 4.9 x10^3/uL (4.8-10.8)
[2021-01-16 10:48] LABS: ALBUMIN 4.8 g/dL (3.2-5.5); ALBUMIN/GLOBULIN RATIO 1.5 (1.0-2.2); BILIRUBIN,TOTAL 0.6 mg/dL (0.2-1.0); CALCIUM 9.6 mg/dL (8.5-10.3); CREATININE 0.7 mg/dL (0.4-1.0); POTASSIUM 3.8 mmol/L (3.5-5.0); TOTAL PROTEIN 7.9 g/dL (6.7-8.2)
[2021-01-16] MEDS ORDERED: IOVERSOL 320 100 ML VIAL IVP ONE ×2 (11:20→11:47)
--- NOTE | 2021-01-16 11:58 | CT Report ---
PROCEDURE: Abdomen/Pelvis W INDICATIONS: IV only, LLQ pain CONTRAST: IV CONTRAST: Optiray 320 ml: 100 PO CONTRAST: *NO PO CONTRAST TECHNIQUE: After the administration of intravenous contrast, 5 mm thick sections acquired from the diaphragms to the symphysis. 5 mm thick coronal and sagittal reformats were acquired. For radiation dose reducti on, the following was used: automated exposure control, adjustment of mA and/or kV according to victoriano ent size. COMPARISON: None. FINDINGS: Image quality: Excellent. ABDOMEN: Lung bases: Lung bases are clear. Heart size is normal. Solid organs: Liver and spleen are normal in size and enhancement. Gallbladder is somewhat irregula r in appearance. It appears lobulated with increased density such as stone in the more superior porti on with a cystic like focus inferiorly into which the cystic duct is attached. Biliary system is non dilated. Pancreas enhances normally. There is a 7 mm focus of low-attenuation Hounsfield units -50 within the tail. No priors are available for comparison. No adrenal nodules. Kidneys demonstrate no rmal size and enhancement, without hydronephrosis. Bilateral renal cysts are present. Peritoneum and bowel: Bowel loops are nonobstructive. There is a mild appearance of the distal trans verse and descending colon. There is a minimal appearance of pericolonic stranding at the left mid qu adrant.. No free fluid or air. Appendix is normal. Nodes and vessels: No retroperitoneal or mesenteric adenopathy by size criteria. Aorta and inferior vena cava are normal in size. Miscellaneous: No ventral hernias. PELVIS: Genitourinary: Bladder wall thickness is normal. Miscellaneous: No inguinal hernias or adenopathy. Bones: No suspicious bony lesions. No vertebral body compression fractures. IMPRESSION: 1. Thickened appearance of the transverse and descending colon possibly secondary to incomplete diste ntion. However, there is a focal loop in the left mid quadrant demonstrating questionable minimal per icolonic inflammation. Recommend clinical correlation as very early colitis cannot be excluded. 2. Somewhat irregular appearance of the gallbladder demonstrating what appears to be a possible stone in the superior portion with loculated cystic focus inferiorly. The latter could represent a ductal cyst. Recommend further evaluation with ultrasound. Reviewed by: Ligia Talley MD on 01/16/2021 11:56 AM PDT Approved by: Ligia Talley MD on 01/16/2021 11:56 AM PDT Station ID: [id number]
[2021-01-16] MEDS ORDERED: AZITHROMYCIN 250 MG TABLET PO STA (12:05)
--- NOTE | 2021-01-16 13:51 | Ultrasound Report ---
PROCEDURE: Abdomen Limited INDICATIONS: Abnormal CT, eval gallbladder TECHNIQUE: Real-time scanning was performed of the abdominal and retroperitoneal organs, with image documentatio n. COMPARISON: None. FINDINGS: Liver: Liver is normal in size . Increased liver parenchymal echotexture is seen. No discrete hepati c lesion is noted. Gallbladder: There is no gallstone. Diffuse gallbladder wall thickening is noted with increased vascu larity particularly involving mid to fundal region of gallbladder and measures up to 8 mm in thicknes s. Possible ring down artifacts are noted in nondependent portion of gallbladder wall. No pericholecy stic fluid or sonographic Simpson's sign. Biliary ducts: Intrahepatic bile ducts are non-dilated. Extrahepatic bile duct caliber measures 3.3 mm. Normal is 6-7 mm or less in diameter, or 10 mm or less post-cholecystectomy. Pancreas: Visualized portions of the pancreas are sonographically normal. Kidneys: Right kidney measures 11.3 cm long. No hydronephrosis or nephrolithiasis. No solid masses. IMPRESSION: 1. Hepatic steatosis, no discrete hepatic lesion. 2. Diffusely thickened gallbladder wall with increased vascularity and subtle area of ringdown artifa cts concerning for adenomyomatosis of gallbladder. No gallstone is seen. No sonographic Simpson's sign to suggest acute cholecystitis. 3. No biliary ductal dilatation. Reviewed by: Mac Perera MD on 01/16/2021 1:50 PM PDT Approved by: Mac Perera MD on 01/16/2021 1:50 PM PDT Station ID: [id number]
[2021-01-16 14:05] VITALS: BP 125/84
== END 2021-01-16 14:06 | disposition home or self-care (01) ==
LOC: ED 10:08
DX: K52.9 Noninfective gastroenteritis and colitis, unspecified (principal); K82.8 Other specified diseases of gallbladder; Z87.891 Personal history of nicotine dependence
CPT/HCPCS: 36415; 74177; 76705; 80053; 81003; 83690; 85025; 93005; 99283; 99284; A9270; Q9967; 81001; 87086

== ENCOUNTER 2021-04-01 07:55 | Day surgery (SDC) | payer OTHER ==
[2021-04-01] MEDS ORDERED: LACTATED RINGERS 1,000 ML IV ONE ×3 (08:03→12:11)
[2021-04-01] MEDS ORDERED: BUPIVACAINE 0.5% PF 10 ML VIAL ONE ×2 (08:47→08:48)
[2021-04-01] MEDS ORDERED: LIDOCAINE 2%-EPI 1:100000 20 ML MDV ONE (08:47)
[2021-04-01] MEDS ORDERED: BUPIVACAINE 0.25% PF 10 ML VIAL ONE (08:48)
--- NOTE | 2021-04-01 08:50 | ANESTHESIA ---
Pre-Anesthesia VS, & Labs - Diagnosis Adenomyomatosis - Procedure Lap Evelyn Vital Signs: Temp Pulse Resp BP Pulse Ox 35.7 C L 117 H 16 132/86 H 99 04/01/21 08:04 04/01/21 08:04 04/01/21 08:04 04/01/21 08:04 04/01/21 08:04 Height: 5 ft 9 in Weight (kg): 73.8 kg Body Mass Index: 24.0 BMI Classification: Healthy weight - NPO >8 hours - Is Patient ?: No Home Medications and Allergies Lisinopril [Zestril] 5 mg PO DAILY 04/27/20 Pravastatin [Pravachol] 20 mg PO DAILY 04/27/20 Pantoprazole Sodium 40 mg PO DAILY 05/23/20 Allergies/Adverse Reactions: Allergies Allergy/AdvReac Type Severity Reaction Status Date / Time No Known Drug Allergies Allergy Verified 01/16/21 10:14 Anes History & Medical History - Anesthetic History Anesthesia Complications: reports: Post-Operative Nausea/Vomiting - Medical History Cardiovascular: reports: Hypertension, High cholesterol Pulmonary: reports: None Gastrointestinal: reports: GERD Urinary: reports: None Neuro: reports: None Musculoskeletal: reports: None Endocrine/Autoimmune: reports: None Blood Disorders: reports: None Skin: reports: None Smoking Status: Former smoker (quit 30 years ago) Psychosocial: reports: No issues indicated History of Cancer?: Yes (hx of breast cancer. s/p radiation) - Surgical History General: reports: Colonoscopy, EGD, Other Gynecologic: reports: Hysterectomy Exam General: Alert, Oriented x3, Cooperative, No acute distress Dental: Dentures full Upper, Dentures full Lower Mouth Openin Fingerbreadth Neck Mobility: Normal Mallampati classification: II Thyromental Distance: 4-6 cm Respiratory: Lungs clear, Normal breath sounds, No respiratory distress, No accessory muscle use Cardiovascular: Regular rate, Normal S1, Normal S2, No murmurs Mental/Cognitive Status: Alert/Oriented X3, Normal for patient Plan Anesthesia Type: General Consent for Procedure(s) Verified and Reviewed: Yes Code Status: Attempt Resuscitation ASA classification: 2-Mild systemic disease Is this case an emergency?: No
[2021-04-01] MEDS ORDERED: ONDANSETRON 4 MG/2 ML VIAL IVP PRN ×2 (08:54→11:41)
[2021-04-01] MEDS ORDERED: HYDROmorphone 0.5 MG/0.5 ML SYRINGE IVP PRN (08:54)
[2021-04-01] MEDS ORDERED: fentaNYL 100 MCG/2 ML VIAL IVP PRN (08:54)
[2021-04-01] MEDS ORDERED: MORPHINE 2 MG/ML CARPUJECT IVP PRN (08:54)
[2021-04-01] MEDS ORDERED: NALOXONE 0.4 MG/ML VIAL IVP PRN (08:54)
[2021-04-01] MEDS ORDERED: ATROPINE ABBOJECT 1 MG/10 ML SYRINGE IVP PRN (08:54)
[2021-04-01] MEDS ORDERED: LACTATED RINGERS 1,000 ML IV SCH (09:00)
[2021-04-01] MEDS ORDERED: ROCURONIUM 50 MG/5 ML VIAL ONE (09:01)
[2021-04-01] MEDS ORDERED: PROPOFOL 200 MG/20 ML VIAL IVP ONE (09:01)
[2021-04-01] MEDS ORDERED: LIDOCAINE-MPF 2% 5 ML VIAL ONE (09:01)
[2021-04-01] MEDS ORDERED: MIDAZOLAM 2 MG/2 ML VIAL ONE (09:02)
[2021-04-01] MEDS ORDERED: DEXAMETHASONE 4 MG/ML VIAL ONE (10:29)
[2021-04-01] MEDS ORDERED: PHENYLEPHRINE 10 MG/ML VIAL ONE (10:43)
[2021-04-01] MEDS ORDERED: IOTHALAMATE MEGLUMINE 50 ML VIAL ONE (10:56)
[2021-04-01] MEDS ORDERED: ONDANSETRON 4 MG/2 ML VIAL ONE ×2 (11:17→14:48)
[2021-04-01] MEDS ORDERED: KETOROLAC 30 MG/ML VIAL ONE (11:17)
[2021-04-01] MEDS ORDERED: LIDOCAINE 2%-EPI 1:100000 20 ML MDV SUBQ ONE (11:20)
[2021-04-01] MEDS ORDERED: NEOSTIGMINE 1 MG/1 ML 10 ML MDV ONE (11:20)
[2021-04-01] MEDS ORDERED: BUPIVACAINE 0.25% PF 10 ML VIAL SUBQ ONE (11:20)
[2021-04-01] MEDS ORDERED: GLYCOPYRROLATE 1 MG/5 ML VIAL ONE (11:20)
[2021-04-01] MEDS ORDERED: ACETAMINOPHEN 325 MG TABLET PO PRN (11:41)
[2021-04-01] MEDS ORDERED: oxyCODONE 5 MG TABLET PO PRN (11:41)
[2021-04-01] MEDS ORDERED: IBUPROFEN 600 MG TABLET PO PRN (11:41)
--- NOTE | 2021-04-01 11:41 | OPERATIVE REPORT ---
Operative Report - General Procedure Date: 04/01/21 Planned Procedure: Laparoscopic cholecystectomy Pre-Op Diagnosis: Adenomyosis of the gallbladder Procedure Performed: Laparoscopic cholecystectomy with intraoperative cholangiogram - Other Other Information/Narrative: After obtaining informed consent the patient is brought to the operating room and placed in the supine position on the operating table. Following successful induction of general endotracheal anesthesia, appropriate padding of all bony prominences, and placement of appropriate monitors, the abdomen was prepped and draped in the standard surgical fashion. A timeout was held per scope protocol. All elements of the surgical safety checklist were followed before, during, and after the procedure. Following infiltration with local anesthetic to create a field block, an incision was created inferior to the umbilicus and carried down through the skin and subcutaneous tissue to reveal the fascia below. 2-0 Vicryl retention sutu res were placed on either side of the midline and the abdomen was entered under direct vision using a 15 blade scalpel. A 10 mm blunt Pollock balloon trocar was placed in the abdominal cavity and it was insufflated to 15 mmHg pressure. The patient was placed in reverse Trendelenburg position with the left side rotated toward the floor. A second trocar, 5 mm, was placed in the midepigastrium under direct vision and after anesthetization of the surrounding skin.A third trocar, also 5 mm was placed in the right upper quadrant for retraction of the gallbladder and a fourth 1 just medial to that as a working port as well. The gallbladder was examined. It was adherent to the surrounding structures including the omentum and the right colon. These structures were carefully dissected free from the surface of the gallbladder using a mixture of blunt and sharp dissection. The fundus of the gallbladder was then grasped and elevated up over the liver revealing the cholecysto hepatoduodenal ligament. The neck of the gallbladder was retracted laterally and the cystic duct and artery were carefully identified. The cystic duct appeared quite ectatic and I could not be sure it was not the common duct. For this reason we performed a cholangiogram. A mehran was created in the neck of the gallbladder where the cystic duct joins the gallbladder.A taut Cholangiocath was introduced into the duct. There was free flow ofA taut Cholangiocath was introduced into the duct. Cholangiogram revealed free flow of bile into the cystic duct and then the common duct. We were able to visualize the intrahepatic biliary radicles as well.This helped to clearly define the anatomy. We determined that we were safe to divide the duct just proximal to the neck.The common duct was visualized but not skeletonized. The cystic duct was clipped 3 times proximally and once distally and divided, the cystic artery was clipped twice proximally, once distally, and divided. The gallbladder was then liberated from its bed in the liver using cautery. It was placed in an Endo Catch bag and removed via the umbilical port with a camera in the epigastric position. The camera was replaced in the umbilical position and the abdomen was checked for hemostasis. It was irrigated with warm saline solution and aspirated free of all fluid and particulate matter. The trochars were then removed under direct vision and the abdomen desufflated. The umbilical incision was closed with interrupted Vicryl suture and Monocryl was placed in all of the skin incisions. All sponge, needle, and instrument counts were correct at the conclusion of the case. The patient was allowed awaken from anesthesia without difficulty and taken to the postanesthesia care unit in good condition.
--- NOTE | 2021-04-01 12:20 | ANESTHESIA POST OP EVALUATION ---
Anesthesia Post Eval - Post Anesthesia Eval Vitals: Last Vital Signs Temp 36.7 C 04/01/21 12:15 Pulse 66 04/01/21 12:15 Resp 16 04/01/21 12:15 BP 96/56 L 04/01/21 12:15 Pulse Ox 100 04/01/21 12:15 CV Function Including HR & BP: Stable Pain Control: Satisfactory Nausea & Vomiting: Negative Mental Status: Baseline Respiratory Status: Airway Patent Hydration Status: Satisfactory Anesthesia Complications: None
[2021-04-01] MEDS ORDERED: oxyCODONE 5 MG TABLET ONE (12:43)
--- NOTE | 2021-04-01 13:31 | XRAY Report ---
PROCEDURE: OR C-Arm Procedure INDICATIONS: CHOLANGIOGRAM TECHNIQUE: Cine fluoroscopic images obtained intraoperatively. COMPARISON: CT abdomen/pelvis 01/16/2021 FINDINGS: Single cine series demonstrates opacification of the cystic duct and secondary opacification of the c ommon bile duct and intrahepatic bile ducts. No extravasation of injected contrast material is seen. No filling defect is seen within the biliary system. No focal stricture is identified. IMPRESSION: Intraoperative cholangiogram demonstrates no contrast extravasation or biliary filling defect. Reviewed by: Carroll Quinn MD on 04/01/2021 1:29 PM PDT Approved by: Carroll Quinn MD on 04/01/2021 1:29 PM PDT Station ID: [id number]
[2021-04-01] MEDS ORDERED: ACETAMINOPHEN 325 MG TABLET PO ONE (13:49)
[2021-04-01 14:36] VITALS: BP 102/49
== END 2021-04-01 07:56 | disposition home or self-care (01) ==
LOC: SDS 07:55
PROVIDERS: ATTEND Surgery
PROC: 0FT44ZZ Resection of Gallbladder, Percutaneous Endoscopic Approach (ICD-10-PCS; principal; 2021-04-01 09:00)
DX: K81.9 Cholecystitis, unspecified (principal); K82.8 Other specified diseases of gallbladder; I10 Essential (primary) hypertension; E78.00 Pure hypercholesterolemia, unspecified; K21.9 Gastro-esophageal reflux disease without esophagitis; Z87.891 Personal history of nicotine dependence; Z85.3 Personal history of malignant neoplasm of breast; Z79.899 Other long term (current) drug therapy
CPT/HCPCS: 47562; A9270; J0690; J7120; Q9961

== ENCOUNTER 2021-04-03 11:34 | Outpatient (CLI) | payer OTHER | END 2021-04-03 11:35 | disposition critical access hospital (66) | LOC: EMS 11:34 | DX: G89.18 Other acute postprocedural pain (principal) | CPT/HCPCS: A0425; A0427 ==

== ENCOUNTER 2021-04-03 11:58 | Inpatient (IN) | payer OTHER ==
[2021-04-03 12:29] LABS: BASOPHILS % (AUTO) 0.2 %; EOSINOPHILS % (AUTO) 0.1 %; HCT - HEMATOCRIT 42.9 % (37.0-47.0); HGB - HEMOGLOBIN 13.9 g/dL (12.0-16.0); LYMPHOCYTES # (AUTO) 0.9 10^3/uL (1.5-3.5); LYMPHOCYTES % (AUTO) 8.9 %; MEAN CORPUSCULAR HEMOGLOBIN 29.6 pg (27.0-31.0); MEAN CORPUSCULAR HGB CONC 32.4 g/dL (32.0-36.0); MEAN CORPUSCULAR VOLUME 91.5 fL (81.0-99.0); MEAN PLATELET VOLUME 8.8 fL (7.9-10.8); MONOCYTES # (AUTO) 0.6 10^3/uL (0.0-1.0); MONOCYTES % (AUTO) 5.5 %; NEUTROPHILS # (AUTO) 8.5 10^3/uL (1.5-6.6); PLT - PLATELET COUNT 240 10^3/uL (130-450); RED BLOOD COUNT 4.69 10^6/uL (4.20-5.40); RED CELL DISTRIBUTION WIDTH 12.7 % (12.0-15.0)
[2021-04-03 12:44] LABS: ALBUMIN 4.2 g/dL (3.2-5.5); ALBUMIN/GLOBULIN RATIO 1.2 (1.0-2.2); BILIRUBIN,TOTAL 2.7 mg/dL (0.2-1.0); CALCIUM 9.1 mg/dL (8.5-10.3); CREATININE 0.6 mg/dL (0.4-1.0); TOTAL PROTEIN 7.6 g/dL (6.7-8.2)
[2021-04-03] MEDS ORDERED: HYDROmorphone 1 MG/ML CARPUJECT IVP STA (12:48)
[2021-04-03] MEDS ORDERED: IOPAMIDOL-300 100 ML VIAL ONE (12:53)
--- NOTE | 2021-04-03 12:55 | ED Physician Documentation ---
History of Present Illness - Stated complaint Stated Complaint: POST OP PX - Chief complaint Chief Complaint: Abd Pain - History obtained from History obtained from: Patient - History of Present Illness Timing: How many days ago (2) Pain level max: 9 Pain level now: 9 - Additonal information Additional information: Patient is a 55-year-old female who is 2 days status post cholecystectomy. Increasing pain since that time. She contacted her surgeon who recommended she come to the emergency department for evaluation. No nausea or vomiting. No diarrhea or constipation. She is taking 1 oxycodone approximately every 6 hours. States the pain is not controlled and she cannot lie flat. No fevers. Worse with movement and palpation, better with rest. Review of Systems Ten Systems: 10 systems reviewed and negative Constitutional: denies: Fever, Chills Throat: denies: Sore throat Cardiac: denies: Chest pain / pressure GI: denies: Nausea, Vomiting, Diarrhea Skin: denies: Rash Musculoskeletal: denies: Neck pain, Back pain Neurologic: denies: Headache PD PAST MEDICAL HISTORY - Past Medical History Cardiovascular: Hypertension, High cholesterol Respiratory: None Neuro: None Endocrine/Autoimmune: None GI: GERD : None HEENT: Chronic vision loss Psych: None Musculoskeletal: None Derm: None - Past Surgical History Past Surgical History: Yes General: Cholecystectomy, Colonoscopy, EGD, 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 - Present Medications Home Medications: Ambulatory Orders Medication Instructions Recorded Confirmed Lisinopril [Zestril] 5 mg PO DAILY 04/27/20 04/03/21 Pravastatin [Pravachol] 20 mg PO QPM 04/27/20 04/03/21 Pantoprazole Sodium 40 mg PO DAILY 05/23/20 04/03/21 Anastrozole 1 mg PO DAILY #90 tablet 08/07/20 04/03/21 Ondansetron Odt [Zofran Odt] 4 mg TL Q6H PRN #10 tablet 04/01/21 04/03/21 oxyCODONE [Roxicodone] 5 mg PO Q6H PRN #20 tablet 04/01/21 04/03/21 - Allergies Allergies/Adverse Reactions: Allergies Allergy/AdvReac Type Severity Reaction Status Date / Time No Known Drug Allergies Allergy Verified 01/16/21 10:14 - Social History Does the pt smoke?: No Smoking Status: Never smoker Does the pt drink ETOH?: No Does the pt have substance abuse?: No - Immunizations Immunizations are current?: Yes PD ED PE NORMAL - Vitals Vital signs reviewed: Yes - General General: Alert and oriented X 3, No acute distress - HEENT HEENT: Moist mucous membranes - Neck Neck: Supple, no meningeal sign - Cardiac Cardiac: RRR, Strong equal pulses - Respiratory Respiratory: No respiratory distress, Clear bilaterally - Abdomen Abdomen: Soft, Other (Incisions are clean dry intact. Mildly distended abdomen. No peritoneal signs. diffusely TTP) - Back Back: No spinal TTP - Derm Derm: Warm and dry - Neuro Neuro: Alert and oriented X 3 - Psych Psych: Normal mood, Normal affect Results - Vitals Vitals: Vital Signs - 24 hr 04/03/21 12:02 Temperature 98.6 C H Heart Rate 88 Respiratory 18 Rate Blood Pressure 146/96 H O2 Saturation 96 Oxygen O2 Source Room air - Labs Labs: Laboratory Tests 04/03/21 04/03/21 04/03/21 12:24 12:24 13:25 WBC 10.0 RBC 4.69 Hgb 13.9 Hct 42.9 MCV 91.5 MCH 29.6 MCHC 32.4 RDW 12.7 Plt Count 240 MPV 8.8 Neut # (Auto) 8.5 H Lymph # (Auto) 0.9 L [place] # (Auto) 0.6 Eos # (Auto) 0.0 Baso # (Auto) 0.0 Absolute Nucleated RBC 0.00 Nucleated RBC % 0.0 Sodium 138 Potassium 4.0 Chloride 102 Carbon Dioxide 26 Anion Gap 10.0 BUN 13 Creatinine 0.6 Estimated GFR (MDRD) 103 Glucose 120 H Calcium 9.1 Total Bilirubin 2.7 H AST 113 H ALT 118 H Alkaline Phosphatase 76 Total Protein 7.6 Albumin 4.2 Globulin 3.4 Albumin/Globulin Ratio 1.2 Lipase 99 H Urine Color DK. ORANGE Urine Clarity CLEAR Urine pH 6.5 Ur Specific [place] 1.010 Urine Protein TRACE Urine Glucose (UA) NEGATIVE Urine Ketones 15 H Urine Occult Blood NEGATIVE Urine Nitrite NEGATIVE Urine Bilirubin NEGATIVE Urine Urobilinogen 0.2 (NORMAL) Ur Leukocyte Esterase NEGATIVE Urine RBC 0-5 Urine WBC 0-3 Ur Squamous Epith Cells RARE Squamous Urine Bacteria Rare Ur Microscopic Review INDICATED Urine Culture Comments NOT INDICATED - Rads (name of study) CT abdomen and pelvis Radiology: Final report received, EMP read contemporaneously, See rad report PD MEDICAL DECISION MAKING - ED course Complexity details: reviewed results, re-evaluated patient, considered differential, d/w patient, d/w sediment remediation consultant ED course: 55-year-old female with increasing pain following her cholecystectomy. Has small to moderate volume diffuse low-density ascites, this is new. Discussed the case with Dr. Palm, general surgery who will place the patient in the hospital for further care and plan on HIDA scan in the morning. Patient is well-appearing, nontoxic. Afebrile. No evidence of sepsis. Pain well controlled. This document was made in part using voice recognition software. While efforts are made to proofread this document, sound alike and grammatical errors may occur. IMPRESSION: 1. Small to moderate volume of diffuse low-density ascites which is new. 2. Status post cholecystectomy. No loculated fluid collection at the gallbladder fossa. 3. There is trace free air anterior to the liver. This is presumably iatrogenic from recent cholecystectomy. 4. Prominent stool and caliber in the proximal colon. The terminal ileum is also prominent with fecalization. There may be mural enhancement within loops of small bowel in the left abdomen. These findings could be due to adynamic ileus and/or enterocolitis. Early SBO is felt to be less likely. 5. Moderate stranding within the subcutaneous fat of the ventral abdominal wall. This could be due to cellulitis. Thickening around the umbilicus. Departure - Departure Disposition: ED Place in Observation Clinical Impression: Abdominal pain Qualifiers: Abdominal location: unspecified location Qualified Code(s): R10.9 - Unspecified abdominal pain Condition: Stable Discharge Date/Time: 04/03/21 14:52
[2021-04-03] MEDS ORDERED: IOPAMIDOL-300 100 ML VIAL IVP ONE (13:19)
--- NOTE | 2021-04-03 13:46 | CT Report ---
PROCEDURE: Abdomen/Pelvis W INDICATIONS: RUQ pain s/p cholecystectomy CONTRAST: IV CONTRAST: Isovue 300 ml: 100 PO CONTRAST: *NO PO CONTRAST TECHNIQUE: After the administration of oral and intravenous contrast, 5 mm thick sections acquired from the diap hragms to the symphysis. 5 mm thick coronal and sagittal reformats were acquired. For radiation dos e reduction, the following was used: automated exposure control, adjustment of mA and/or kV accordin g to patient size. COMPARISON: CT abdomen and pelvis 01/16/2021. FINDINGS: Image quality: Excellent. ABDOMEN: Lung bases: Lung bases are clear. Heart size is normal. Solid organs: Liver and spleen are normal in size and enhancement. Punctate hypodensity in the left lobe of liver, unchanged. Gallbladder is surgically absent. No fluid collection in the gallbladder fossa. Trace thickening and fluid adjacent to the proximal duodenum. Biliary system is non dilated. Pancreas enhances normally. No adrenal nodules. Kidneys demonstrate normal size and enhancement, wi thout hydronephrosis. Small cyst at the inferior pole the right kidney and superior pole of the left kidney. Peritoneum and bowel: There is contrast in the cecum. The proximal colon is prominent. The terminal ileum is prominent measuring up to 3.3 cm in diameter. There is equalization within the terminal ileu m. Loop of small bowel in the left lower quadrant with possible mural enhancement. The appendix is no t dilated. Small to moderate volume of low-density ascites. There are a few foci of extraluminal gas anterior to the liver, (4/20). Nodes and vessels: No retroperitoneal or mesenteric adenopathy by size criteria. Aorta and inferior vena cava are normal in size. Miscellaneous: No ventral hernias. There is moderate stranding within the ventral abdominal wall power bcutaneous fat which is new compared to the prior CT, (). No fluid collection. There is a tiny fo cus of gas likely at the laparoscopic port site. Thickening at the umbilicus. PELVIS: Genitourinary: Bladder wall thickness is normal. Bladder is distended. Uterus is absent. Miscellaneous: No inguinal hernias or adenopathy. Bones: No suspicious bony lesions. No vertebral body compression fractures. IMPRESSION: 1. Small to moderate volume of diffuse low-density ascites which is new. 2. Status post cholecystectomy. No loculated fluid collection at the gallbladder fossa. 3. There is trace free air anterior to the liver. This is presumably iatrogenic from recent cholecyst ectomy. 4. Prominent stool and caliber in the proximal colon. The terminal ileum is also prominent with fecal ization. There may be mural enhancement within loops of small bowel in the left abdomen. These findin gs could be due to adynamic ileus and/or enterocolitis. Early SBO is felt to be less likely. 5. Moderate stranding within the subcutaneous fat of the ventral abdominal wall. This could be due to cellulitis. Thickening around the umbilicus. Reviewed by: Hao Toure MD on 04/03/2021 12:45 PM NAN Approved by: Hao Toure MD on 04/03/2021 12:45 PM NAN Station ID: [id number]
[2021-04-03 13:50] LABS: GLUCOSE, URINE (UA) NEGATIVE (NEGATIVE); KETONES,URINE (UA) 15 mg/dL (NEGATIVE); LEUKOCYTE ESTERASE, URINE NEGATIVE (NEGATIVE); NITRITE,URINE NEGATIVE (NEGATIVE); OCCULT BLOOD,URINE NEGATIVE (NEGATIVE); PH,URINE 6.5 PH (5.0-7.5); PROTEIN,URINE TRACE mg/dL (NEGATIVE); UROBILINOGEN,URINE 0.2 (NORMAL) E.U./dL (NORMAL)
[2021-04-03 13:59] LABS: BILIRUBIN,URINE NEGATIVE (NEGATIVE); CLARITY,URINE CLEAR (CLEAR); ICTOTEST,URINE NEGATIVE
[2021-04-03 14:11] LABS: BACTERIA,URINE Rare /HPF (None Seen); RBC,URINE 0-5 /HPF (0-5); SQUAMOUS EPITHELIAL CELL,UR RARE Squamous (<= Few); WBC,URINE 0-3 /HPF (0-5)
--- NOTE | 2021-04-03 14:53 | PHARMACY PROGRESS NOTE ---
- Best Possible Medication History Admit Date and Time: 04/03/21 1417 Processed by: Nursing Medication History completed: Yes Med list confirmed by nursing As the person ultimately responsible for medication therapy, providers are able to order a medication from an existing home medication list in [facility] via the "Reconcile Routine" prior to Confirmation of that medication by endoscopy support specialist. Such practice is discouraged except when the physician, in their clinical judgment, deems that a medical need exists for a medication without regard to previous use.
[2021-04-03] MEDS ORDERED: PIPERACILLIN/TAZOBACTAM 3.375 GM in SODIUM CHLORIDE 0.9% MINIBAG 100 ML IV ONE (15:00)
[2021-04-03] MEDS: SODIUM CHLORIDE 0.9% 1,000 ML IV SCH (15:06)
[2021-04-03] MEDS: ACETAMINOPHEN 1,000 MG/100 ML 100 ML IV SCH ×2 (15:07→20:47)
[2021-04-03] MEDS: SODIUM CHLORIDE FLUSH 0.9% 10 ML SYRINGE IVP PRN (15:35)
[2021-04-03] MEDS: ONDANSETRON 4 MG/2 ML VIAL IVP PRN ×2 (15:35→21:34)
--- NOTE | 2021-04-03 15:50 | SURGERY HX AND PHYSICAL(T) ---
Surgical History & Physical - Chief Complaint/HPI Chief Complaint: Abdominal pain History of Present Illness: Xuan is a wonderful 55-year-old lady who had a cholecystectomy on Thursday. The anatomy was noted to be somewhat unusual and cholangiogram was done at the time of the cholecystectomy. She said that she never really felt great after being discharged. She has been taking her pain medicine at home but still has significant abdominal pain. Any fever. She has been very slightly nauseated but has not vomited.Her says she has not wanted to eat or really drink anything and she really does not want to get out of bed at all.She called the office this morning to report these things. I told her to go immediately to the emergency room and so they called 911 and she was transported. In the emergency room she was found to have stable vitals. Laboratory evaluation was normal but she had a slight elevation in her liver function studies and an elevated total bilirubin. She had a CT scan there that revealed fluid within the abdominal cavity with no definite source.She is being admitted now for No work-up and supportive care. - PMH/PSH/Social Hx Does the pt have a hx of MRSA?: No Neurological History: None Eyes, Ears, Nose, Throat: Chronic vision loss Cardiovascular: Hypertension, High cholesterol Respiratory: None Skin: None Endocrine/Autoimmune: None Gastrointestinal: GERD Urinary: None Musculoskeletal: None Blood Disorders: None Psychiatric: None General: Cholecystectomy, Colonoscopy, EGD, Other Smoking Status: Never smoker Does the pt drink ETOH?: No Does the pt have substance abuse?: No - Home Meds and Allergies Home Medications: Lisinopril [Zestril] 5 mg PO DAILY 04/27/20 Pravastatin [Pravachol] 20 mg PO QPM 04/27/20 Pantoprazole Sodium 40 mg PO DAILY 05/23/20 Allergies/Adverse Reactions: Allergies Allergy/AdvReac Type Severity Reaction Status Date / Time No Known Drug Allergies Allergy Verified 01/16/21 10:14 - Review of Systems Constitutional: Fatigue, Weakness, Poor appetite. No: Fever, Chills HEENT: No: Headaches, Visual changes Skin: No: Diaphoresis Cardiac: HTN. No: Syncope Respiratory: No: Shortness of breath, Sputum Gastrointestinal: Nausea, Abdominal pain, Flatus. No: Vomiting, Diarrhea Gentinourinary: No: Dysuria, Frequency - Vital Signs Heart Rate: 85 Blood Pressure: 137/94 Temperature: 98.6 C Respiratory Rate: 18 O2 Saturation: 93 Weight (kg): 73.936 kg Height: 1.75 m - Physical Exam General Appearance: positive: Alert, Mild distress Eyes Bilatera: positive: Normal inspection, PERRL, EOMI ENT: positive: Pharynx nml Neck: positive: Nml inspection, Thyroid nml, No JVD, Trachea midline Respiratory: positive: Chest non-tender, No respiratory distress, Breath sounds nml Cardiovascular: positive: Regular rate & rhythm Peripheral Pulses: positive: 1+ Abdomen: positive: Tenderness (Her and distended with hypoactive bowel sounds.Incisions are clean, dry, and well approximated. There is a large bruise around the umbilical incision.) Skin: positive: Color nml Extremities: positive: Non-tender Neurologic/Psychiatric: positive: Oriented x3 - Patient Review Patient Review: Problems were reviewed with the patient during this visit. Medications were reviewed with the patient during this visit. Allergies were reviewed this patient during this visit. Pertinent Tests Reviewed: All pertitent test for this patient were reviewed. - Assessment & Plan Assessment and Plan: EXAM: [id number] CT/ABPEW ([id number]) PROCEDURE: Abdomen/Pelvis W INDICATIONS: RUQ pain s/p cholecystectomy CONTRAST: IV CONTRAST: Isovue 300 ml: 100 PO CONTRAST: *NO PO CONTRAST TECHNIQUE: After the administration of oral and intravenous contrast, 5 mm thick sections acquired from the diaphragms to the symphysis. 5 mm thick coronal and sagittal reformats were acquired. For radiation dose reduction, the following was used: automated exposure control, adjustment of mA and/or kV according to patient size. COMPARISON: CT abdomen and pelvis 01/16/2021. FINDINGS: Image quality: Excellent. ABDOMEN: Lung bases: Lung bases are clear. Heart size is normal. Solid organs: Liver and spleen are normal in size and enhancement. Punctate hypodensity in the left lobe of liver, unchanged. Gallbladder is surgically absent. No fluid collection in the gallbladder fossa. Trace thickening and fluid adjacent to the proximal duodenum. Biliary system is non dilated. Pancreas enhances normally. No adrenal nodules. Kidneys demonstrate normal size and enhancement, without hydronephrosis. Small cyst at the inferior pole the right kidney and superior pole of the left kidney. Peritoneum and bowel: There is contrast in the cecum. The proximal colon is prominent. The terminal ileum is prominent measuring up to 3.3 cm in diameter. There is equalization within the terminal ileum. Loop of small bowel in the left lower quadrant with possible mural enhancement. The appendix is not dilated. Small to moderate volume of low-density ascites. There are a few foci of extraluminal gas anterior to the liver, (4/20). Nodes and vessels: No retroperitoneal or mesenteric adenopathy by size criteria. Aorta and inferior vena cava are normal in size. Miscellaneous: No ventral hernias. There is moderate stranding within the ventral abdominal wall subcutaneous fat which is new compared to the prior CT, (). No fluid collection. There is a tiny focus of gas likely at the laparoscopic port site. Thickening at the umbilicus. PELVIS: Genitourinary: Bladder wall thickness is normal. Bladder is distended. Uterus is absent. Miscellaneous: No inguinal hernias or adenopathy. Bones: No suspicious bony lesions. No vertebral body compression fractures. IMPRESSION: 1. Small to moderate volume of diffuse low-density ascites which is new. 2. Status post cholecystectomy. No loculated fluid collection at the gallbladder fossa. 3. There is trace free air anterior to the liver. This is presumably iatrogenic from recent cholecystectomy. 4. Prominent stool and caliber in the proximal colon. The terminal ileum is also prominent with fecalization. There may be mural enhancement within loops of small bowel in the left abdomen. These findings could be due to adynamic ileus and/or enterocolitis. Early SBO is felt to be less likely. 5. Moderate stranding within the subcutaneous fat of the ventral abdominal wall. This could be due to cellulitis. Thickening around the umbilicus. Reviewed by: Hao Toure MD on 04/03/2021 12:45 PM NAN Approved by: Hao Toure MD on 04/03/2021 12:45 PM NAN A/P Nausea, abdominal pain, and vomiting as well as free fluid in the abdomen following cholecystectomy. This is all in the context of slightly elevated bilirubin and no evidence of sepsis.I think the most likely etiology is a bile leak. We do had a cholangiogram at the time of the operation showing the anatomy but she could still have a leak either from the cystic duct, common duct injury, or accessory duct.Our plan is to get a HIDA scan to look for such a leak in the morning. Other plans to follow those results. She will be mated overnight with IV hydration, antibiotics, pain control, and other supportive measures.
[2021-04-03] MEDS: PANTOPRAZOLE 40 MG TABLET PO SCH (16:07)
[2021-04-03] MEDS: SODIUM CHLORIDE FLUSH 0.9% 10 ML SYRINGE IVP SCH (16:38)
[2021-04-03] MEDS: PIPERACILLIN/TAZOBACTAM 3.375 GM in SODIUM CHLORIDE 0.9% MINIBAG 100 ML IV SCH (18:59)
[2021-04-03] MEDS: HYDROmorphone 0.5 MG/0.5 ML SYRINGE IVP PRN (20:46)
[2021-04-03] MEDS: PRAVASTATIN 10 MG TABLET PO SCH (20:47)
[2021-04-04] MEDS: HYDROmorphone 0.5 MG/0.5 ML SYRINGE IVP PRN ×4 (00:49→11:21)
[2021-04-04] MEDS: SODIUM CHLORIDE 0.9% 1,000 ML IV SCH ×3 (01:02→13:58)
[2021-04-04] MEDS: SODIUM CHLORIDE FLUSH 0.9% 10 ML SYRINGE IVP SCH ×3 (01:06→16:59)
[2021-04-04] MEDS: PIPERACILLIN/TAZOBACTAM 3.375 GM in SODIUM CHLORIDE 0.9% MINIBAG 100 ML IV SCH ×3 (04:05→19:32)
[2021-04-04] MEDS: ACETAMINOPHEN 1,000 MG/100 ML 100 ML IV SCH ×2 (04:05→08:56)
[2021-04-04] MEDS: SODIUM CHLORIDE FLUSH 0.9% 10 ML SYRINGE IVP PRN ×2 (05:55→11:21)
[2021-04-04] MEDS: PANTOPRAZOLE 40 MG TABLET PO SCH (06:00)
[2021-04-04 06:02] LABS: BASOPHILS % (AUTO) 0.3 %; EOSINOPHILS % (AUTO) 0.3 %; HCT - HEMATOCRIT 40.4 % (37.0-47.0); HGB - HEMOGLOBIN 12.7 g/dL (12.0-16.0); LYMPHOCYTES # (AUTO) 0.9 10^3/uL (1.5-3.5); LYMPHOCYTES % (AUTO) 9.6 %; MEAN CORPUSCULAR HEMOGLOBIN 29.3 pg (27.0-31.0); MEAN CORPUSCULAR HGB CONC 31.4 g/dL (32.0-36.0); MEAN CORPUSCULAR VOLUME 93.3 fL (81.0-99.0); MEAN PLATELET VOLUME 9.2 fL (7.9-10.8); MONOCYTES # (AUTO) 0.4 10^3/uL (0.0-1.0); MONOCYTES % (AUTO) 4.6 %; NEUTROPHILS # (AUTO) 8.1 10^3/uL (1.5-6.6); NEUTROPHILS % (AUTO) 84.8 %; PLT - PLATELET COUNT 253 10^3/uL (130-450); RED BLOOD COUNT 4.33 10^6/uL (4.20-5.40); RED CELL DISTRIBUTION WIDTH 12.8 % (12.0-15.0); WHITE BLOOD COUNT 9.5 x10^3/uL (4.8-10.8)
[2021-04-04 06:12] LABS: CREATININE 0.5 mg/dL (0.4-1.0)
[2021-04-04 06:13] LABS: ALBUMIN 3.5 g/dL (3.2-5.5); ALBUMIN/GLOBULIN RATIO 1.1 (1.0-2.2); BILIRUBIN,TOTAL 2.5 mg/dL (0.2-1.0); CALCIUM 8.8 mg/dL (8.5-10.3); TOTAL PROTEIN 6.8 g/dL (6.7-8.2)
[2021-04-04] MEDS: lisinopriL 5 MG TABLET PO SCH (08:56)
[2021-04-04] MEDS: ANASTROZOLE 1 MG TABLET PO SCH (09:00)
[2021-04-04] MEDS ORDERED: DIATRIZOATE MEGLU/DIATRIZO SOD 30 ML BOTTLE PO ONE (11:12)
[2021-04-04] MEDS: ONDANSETRON 4 MG/2 ML VIAL IVP PRN (11:21)
--- NOTE | 2021-04-04 11:44 | Nuclear Medicine Report ---
PROCEDURE: Hepatobiliary HIDA w/o Rx INDICATIONS: Bile leak RADIOPHARMACEUTICAL: 5.28 mCi Tc-99m meprofenin i.v. TECHNIQUE: Following intravenous administration of Tc-99m meprofenin, sequential anterior abdominal images were obtained through 55 minutes. COMPARISON: CT abdomen pelvis 04/03/2021 FINDINGS: Biliary scan: There is normal tracer uptake and excretion by the liver. There is normal visualizati on of the intrahepatic ducts, common bile duct,. There is normal tracer transit into the duodenum. The gallbladder has been removed. There is appearance of being increased tracer extending from the ga llbladder fossa inferior and laterally. IMPRESSION: 1. Radiotracer identified along the inferior margin of the gallbladder fossa extending to the inferio r right lateral location in relation to the liver. This corresponds to area of fluid collection on CT scan, most suggestive of bile leak. Reviewed by: Ligia Talley MD on 04/04/2021 11:43 AM PDT Approved by: Ligia Talley MD on 04/04/2021 11:43 AM PDT Station ID: [id number]
--- NOTE | 2021-04-04 13:23 | PROVIDER PROGRESS NOTE ---
Subjective - General Admit Date: 04/03/21 Procedure Date: 04/01/21 Post Op Days: 3 Procedure Performed: Lap elvie - Review of Systems Wound/Incisions: positive: Healing well General: positive: Fever Gastrointestinal: positive: Nausea, Abdominal pain Genitourinary: positive: Other (Constipation) Objective - Patient Data Reviewed Vital Signs: Yes Vital Signs: Vital Signs x48h Temp Pulse Resp BP Pulse Ox 04/04/21 11:20 36.8 C 79 20 142/81 H 95 04/04/21 07:25 36.3 C L 73 16 134/85 H 93 04/04/21 05:39 36.9 C 93 20 136/94 H 95 Weight: Weight 04/02/21 04/03/21 04/04/21 23:59 23:59 23:59 Weight (kg) 75 kg Intake & Output: Intake and Output Totals x24h 04/02/21 04/03/21 04/04/21 23:59 23:59 23:59 Intake Total 211.275 6602.000 Balance 925.236 2540.000 - Lab Results Lab Results: 04/04/21 05:24 04/04/21 05:24 Other Lab Results: Lab Results x24hrs 04/04/21 04/04/21 04/03/21 Range/Units 05:24 05:24 13:25 WBC 9.5 (4.8-10.8) x10^3/uL RBC 4.33 (4.20-5.40) 10^6/uL Hgb 12.7 (12.0-16.0) g/dL Hct 40.4 (37.0-47.0) % MCV 93.3 (81.0-99.0) fL MCH 29.3 (27.0-31.0) pg MCHC 31.4 L (32.0-36.0) g/dL RDW 12.8 (12.0-15.0) % Plt Count 253 (130-450) 10^3/uL MPV 9.2 (7.9-10.8) fL Neut # (Auto) 8.1 H (1.5-6.6) 10^3/uL Lymph # (Auto) 0.9 L (1.5-3.5) 10^3/uL [place] # (Auto) 0.4 (0.0-1.0) 10^3/uL Eos # (Auto) 0.0 (0.0-0.7) 10^3/uL Baso # (Auto) 0.0 (0.0-0.1) 10^3/uL Absolute Nucleated RBC 0.00 x10^3/uL Nucleated RBC % 0.0 /100WBC Sodium 139 (135-145) mmol/L Potassium 4.0 (3.5-5.0) mmol/L Chloride 105 (101-111) mmol/L Carbon Dioxide 25 (21-32) mmol/L Anion Gap 9.0 (6-13) BUN 15 (6-20) mg/dL Creatinine 0.5 (0.4-1.0) mg/dL Estimated GFR (MDRD) 127 (>89) Glucose 103 H (70-100) mg/dL Calcium 8.8 (8.5-10.3) mg/dL Total Bilirubin 2.5 H (0.2-1.0) mg/dL AST 54 H (10-42) IU/L ALT 102 H (10-60) IU/L Alkaline Phosphatase 78 (42-121) IU/L Total Protein 6.8 (6.7-8.2) g/dL Albumin 3.5 (3.2-5.5) g/dL Globulin 3.3 (2.1-4.2) g/dL Albumin/Globulin Ratio 1.1 (1.0-2.2) Urine Color DK. ORANGE Urine Clarity CLEAR (CLEAR) Urine pH 6.5 (5.0-7.5) PH Ur Specific [place] 1.010 (1.002-1.030) Urine Protein TRACE (NEGATIVE) mg/dL Urine Glucose (UA) NEGATIVE (NEGATIVE) mg/dL Urine Ketones 15 H (NEGATIVE) mg/dL Urine Occult Blood NEGATIVE (NEGATIVE) Urine Nitrite NEGATIVE (NEGATIVE) Urine Bilirubin NEGATIVE (NEGATIVE) Urine Urobilinogen 0.2 (NORMAL) (NORMAL) E.U./dL Ur Leukocyte Esterase NEGATIVE (NEGATIVE) Urine RBC 0-5 (0-5) /HPF Urine WBC 0-3 (0-5) /HPF Ur Squamous Epith Cells RARE Squamous (<= Few) Urine Bacteria Rare (None Seen) /HPF Ur Microscopic Review INDICATED Urine Culture Comments NOT INDICATED - Imaging Results Radiology Imaging: positive: Final report received Imaging Results Comments: AMILCAR cosistent with bile leak - Current Medications Current Medications: Current Medications Generic Name Dose Route Start Last Admin Trade Name Freq PRN Reason Stop Dose Admin Anastrozole 1 mg 04/04/21 09:00 04/04/21 09:00 Anastrozole 1 Mg Tablet PO 1 mg DAILY JANESSA Administration Hydromorphone HCl 0.5 mg 04/03/21 14:17 04/04/21 11:21 Hydromorphone 0.5 Mg/0.5 Ml Syringe IVP 0.5 mg Q1H PRN Administration PAIN Sodium Chloride 1,000 mls @ 100 mls/hr 04/03/21 15:00 04/04/21 11:25 Normal Saline 0.9% IV 100 mls/hr .Q10H JANESSA Infusion Piperacillin Sod/Tazobactam 100 mls @ 25 mls/hr 04/03/21 19:30 04/04/21 11:25 Sod 3.375 gm/ Sodium Chloride IV 25 mls/hr Q8H JANESSA Administration Lisinopril 5 mg 04/04/21 09:00 04/04/21 08:56 Lisinopril 5 Mg Tablet PO 5 mg DAILY JANESSA Administration Ondansetron HCl 4 mg 04/03/21 14:17 04/04/21 11:21 Ondansetron 4 Mg/2 Ml Vial IVP 4 mg Q6H PRN Administration Nausea / Vomiting Pantoprazole Sodium 40 mg 04/03/21 15:00 04/04/21 06:00 Pantoprazole 40 Mg Tablet PO 40 mg QDAC JANESSA Administration Pravastatin Sodium 20 mg 04/03/21 21:00 04/03/21 20:47 Pravastatin 10 Mg Tablet PO 20 mg QPM JANESSA Administration Sodium Chloride 10 ml 04/03/21 17:00 04/04/21 07:46 Sodium Chloride Flush 0.9% 10 Ml Syringe IVP 10 ml 0100,0900,1700 JANESSA Administration Sodium Chloride 10 ml 04/03/21 14:17 04/04/21 11:21 Sodium Chloride Flush 0.9% 10 Ml Syringe IVP 10 ml PRN PRN Administration NEEDED PER PROVIDER ORDERS - Physical Exam Wound/Incisions: positive: Healing well General Appearance: positive: No acute distress Eyes Bilateral: positive: Normal inspection, PERRL, EOMI Neck: positive: Nml inspection, Thyroid nml Respiratory: positive: Chest non-tender, No respiratory distress, Breath sounds nml Cardiovascular: positive: Regular rate & rhythm Abdomen: positive: Tenderness, Other (Hypoactive bowel sounds). negative: Guarding, Rebound Back: positive: Nml inspection Skin: positive: Color nml Neurologic/Psychiatric: positive: Oriented x3 ABX Reporting Has patient been on IV antibiotics over the past 48 hours?: Yes Impression/Plan - Problem List Problem List: Bile leak after cholecystectomy. I have asked radiology to place a percutaneous drain this afternoon. They have assured me that this is likely a good possibility to get accomplished in the next couple of hours. Additionally, I have spoken with Dr. Bret Mireles at [facility] group he is agreed to accept her for ERCP and stent placement and then send her back to us. He is looking for an time to do that and will coordinate with the nursing staff. It is my hope that this can be done tomorrow. Continue antibiotic and pain medication at least until the drain is in place. Recheck labs in the a.m.
[2021-04-04] MEDS: ACETAMINOPHEN 500 MG TABLET PO SCH ×3 (13:25→20:09)
[2021-04-04 15:09] LABS: INR 1.2 (0.8-1.2); PT - PROTHROMBIN TIME 13.4 secs (9.9-12.6)
[2021-04-04] MEDS ORDERED: BUFFERED LIDOCAINE 10 ML SYRINGE ONE (15:13)
[2021-04-04] MEDS ORDERED: MIDAZOLAM 2 MG/2 ML VIAL ONE (15:48)
[2021-04-04] MEDS ORDERED: fentaNYL 100 MCG/2 ML VIAL ONE (15:49)
--- NOTE | 2021-04-04 16:11 | PROVIDER PROGRESS NOTE ---
Subjective - General Admit Date: 04/03/21 Procedure Date: 04/01/21 Post Op Days: 3 Procedure Performed: Lap elvie - Review of Systems Wound/Incisions: positive: Healing well General: positive: Fever Gastrointestinal: positive: Nausea, Abdominal pain Genitourinary: positive: Other (Constipation) Objective - Patient Data Vital Signs: Vital Signs x48h Temp Pulse Resp BP Pulse Ox 04/04/21 15:42 36.4 C L 98 18 133/89 H 98 04/04/21 11:20 36.8 C 79 20 142/81 H 95 Weight: Weight 04/02/21 04/03/21 04/04/21 23:59 23:59 23:59 Weight (kg) 75 kg Intake & Output: Intake and Output Totals x24h 04/02/21 04/03/21 04/04/21 23:59 23:59 23:59 Intake Total 978.599 0401.249 Balance 595.980 3337.249 - Lab Results Lab Results: 04/04/21 05:24 04/04/21 05:24 Other Lab Results: Lab Results x24hrs 04/04/21 04/04/21 04/04/21 Range/Units 14:51 05:24 05:24 WBC 9.5 (4.8-10.8) x10^3/uL RBC 4.33 (4.20-5.40) 10^6/uL Hgb 12.7 (12.0-16.0) g/dL Hct 40.4 (37.0-47.0) % MCV 93.3 (81.0-99.0) fL MCH 29.3 (27.0-31.0) pg MCHC 31.4 L (32.0-36.0) g/dL RDW 12.8 (12.0-15.0) % Plt Count 253 (130-450) 10^3/uL MPV 9.2 (7.9-10.8) fL Neut # (Auto) 8.1 H (1.5-6.6) 10^3/uL Lymph # (Auto) 0.9 L (1.5-3.5) 10^3/uL [place] # (Auto) 0.4 (0.0-1.0) 10^3/uL Eos # (Auto) 0.0 (0.0-0.7) 10^3/uL Baso # (Auto) 0.0 (0.0-0.1) 10^3/uL Absolute Nucleated RBC 0.00 x10^3/uL Nucleated RBC % 0.0 /100WBC PT 13.4 H (9.9-12.6) secs INR 1.2 (0.8-1.2) Sodium 139 (135-145) mmol/L Potassium 4.0 (3.5-5.0) mmol/L Chloride 105 (101-111) mmol/L Carbon Dioxide 25 (21-32) mmol/L Anion Gap 9.0 (6-13) BUN 15 (6-20) mg/dL Creatinine 0.5 (0.4-1.0) mg/dL Estimated GFR (MDRD) 127 (>89) Glucose 103 H (70-100) mg/dL Calcium 8.8 (8.5-10.3) mg/dL Total Bilirubin 2.5 H (0.2-1.0) mg/dL AST 54 H (10-42) IU/L ALT 102 H (10-60) IU/L Alkaline Phosphatase 78 (42-121) IU/L Total Protein 6.8 (6.7-8.2) g/dL Albumin 3.5 (3.2-5.5) g/dL Globulin 3.3 (2.1-4.2) g/dL Albumin/Globulin Ratio 1.1 (1.0-2.2) - Current Medications Current Medications: Current Medications Generic Name Dose Route Start Last Admin Trade Name Donavon PRN Reason Stop Dose Admin Acetaminophen 500 mg 04/04/21 13:00 04/04/21 13:25 Acetaminophen 500 Mg Tablet PO 500 mg Q4HR JANESSA Administration Anastrozole 1 mg 04/04/21 09:00 04/04/21 09:00 Anastrozole 1 Mg Tablet PO 1 mg DAILY JANESSA Administration Sodium Chloride 1,000 mls @ 100 mls/hr 04/03/21 15:00 04/04/21 15:00 Normal Saline 0.9% IV 0 mls/hr .Q10H JANESSA Infusion Piperacillin Sod/Tazobactam 100 mls @ 25 mls/hr 04/03/21 19:30 04/04/21 15:00 Sod 3.375 gm/ Sodium Chloride IV 0 mls/hr Q8H JANESSA Infusion Lisinopril 5 mg 04/04/21 09:00 04/04/21 08:56 Lisinopril 5 Mg Tablet PO 5 mg DAILY JANESSA Administration Ondansetron HCl 4 mg 04/03/21 14:17 04/04/21 11:21 Ondansetron 4 Mg/2 Ml Vial IVP 4 mg Q6H PRN Administration Nausea / Vomiting Pantoprazole Sodium 40 mg 04/03/21 15:00 04/04/21 06:00 Pantoprazole 40 Mg Tablet PO 40 mg QDAC JANESSA Administration Pravastatin Sodium 20 mg 04/03/21 21:00 04/03/21 20:47 Pravastatin 10 Mg Tablet PO 20 mg QPM JANESSA Administration Sodium Chloride 10 ml 04/03/21 17:00 04/04/21 07:46 Sodium Chloride Flush 0.9% 10 Ml Syringe IVP 10 ml 0100,0900,1700 JANESSA Administration Sodium Chloride 10 ml 04/03/21 14:17 04/04/21 11:21 Sodium Chloride Flush 0.9% 10 Ml Syringe IVP 10 ml PRN PRN Administration NEEDED PER PROVIDER ORDERS Impression/Plan - Problem List Problem List: I just spoke with Dr. Mireles at [facility] in [place]. She is scheduled for ERCP and stent placement tomorrow in [place] at 1300. They have requested a new COVID study prior to transfer. This has been ordered.
[2021-04-04] MEDS ORDERED: HYDROmorphone 0.5 MG/0.5 ML SYRINGE IVP PRN (16:12)
--- NOTE | 2021-04-04 16:51 | CT Report ---
PROCEDURE: RETROPERITONEAL ABSC DRAIN PREPROCEDURE DIAGNOSIS: Postoperative bile leak POSTPROCEDURE DIAGNOSIS: Technically successful CT-guided right peroneal fluid collection drainage OPERATIVE PHYSICIAN: Lee Nelson M.D. OPERATIVE PROCEDURE PERFORMED: CT guided abscess drainage Sedation analgesia for less than 30 minutes (please see chart notes) PROCEDURE: Informed consent was obtained from the patient. The patient was sterilely prepped and draped 1% lido jeff was used as a local anesthetic. Intravenous versed and fentanyl were given for moderate sedati on. Under CT guidance, a 18-gauge DTN needle was advanced into a fluid collection in the right abdome n immediately subjacent to the inferior aspect of the liver. After a small amount of dark yellow bili ous fluid was aspirated through the needle, exchange was made over an 035 inch Holguin wire, and the tr act was serially dilated allowing for placement of a 8 Persian pigtail drainage catheter. Approximatel y 240 milliliters of dark yellow bilious fluid was aspirated. A sample was sent for Gram stain, cultu re, and sensitivity. The catheter was sterilely secured and bandaged at the skin site. It was placed to external gravity bag drainage. The patient tolerated the procedure well with no immediate complica tions noted. IMPRESSION: 1. Technically successful CT-guided drainage of a postoperative bilious fluid collection Comment: A sample was sent for Gram stain, culture, and sensitivity, as well as cell count and biliru bin. This tube should be flushed with 5 mL of sterile saline q. day. Reviewed by: Lee Nelson MD on 04/04/2021 4:50 PM PDT Approved by: Lee Nelson MD on 04/04/2021 4:50 PM PDT Station ID: [id number]
[2021-04-04] MEDS ORDERED: BUFFERED LIDOCAINE 10 ML SYRINGE IU ONE (19:19)
[2021-04-04] MEDS: KETOROLAC 30 MG/ML VIAL IVP SCH (19:32)
[2021-04-04 19:44] LABS: B. PARAPERTUSSIS- RESP PCR PAN NOT DETECTED; B. PERTUSSIS- RESP PCR PANEL NOT DETECTED; C. PNEUMONIAE- RESP PCR PANEL NOT DETECTED; CORONAVIRUS 229E-RESP PCR NOT DETECTED; CORONAVIRUS HKU1-RESP PCR NOT DETECTED; CORONAVIRUS NL63-RESP PCR NOT DETECTED; CORONAVIRUS OC43-RESP PCR NOT DETECTED; HUMAN METAPNEUMOVIRUS NOT DETECTED; INFLUENZA A- RESP PCR PANEL NOT DETECTED; INFLUENZA B - RESP PCR PANEL NOT DETECTED; M. PNEUMONIAE- RESP PCR PANEL NOT DETECTED; PARAINFLUENZA VIRUS 1 NOT DETECTED; PARAINFLUENZA VIRUS 2 NOT DETECTED; PARAINFLUENZA VIRUS 3 NOT DETECTED; PARAINFLUENZA VIRUS 4 NOT DETECTED; RHINOVIRUS/ENTEROVIRUS NOT DETECTED; RSV- RESP PCR PANEL NOT DETECTED; SARS-CoV-2 -RESP PCR PANEL NOT DETECTED
[2021-04-04] MEDS: PRAVASTATIN 10 MG TABLET PO SCH (20:09)
[2021-04-04 20:32] LABS: BF CLARITY CLOUDY; BF COLOR BROWN; BF SOURCE PERITONEAL; LYMPHOCYTES %,BODY FLUID 5 %; MACROPHAGES %,BODY FLUID 20 %; NEUTROPHILS %, BF 75 %
[2021-04-04 22:39] LABS: CC,BF RBC 8000 /mm^3; CC,BF WBC 1648 /mm^3; MESOTHELIAL %, BF 0 %
[2021-04-05] MEDS: ACETAMINOPHEN 500 MG TABLET PO SCH ×7 (01:15→20:37)
[2021-04-05] MEDS: KETOROLAC 30 MG/ML VIAL IVP SCH ×4 (01:15→20:37)
[2021-04-05] MEDS: ONDANSETRON 4 MG/2 ML VIAL IVP PRN (01:21)
[2021-04-05] MEDS: SODIUM CHLORIDE FLUSH 0.9% 10 ML SYRINGE IVP SCH ×3 (01:24→20:09)
[2021-04-05] MEDS: SODIUM CHLORIDE 0.9% 1,000 ML IV SCH ×2 (02:11→20:37)
[2021-04-05] MEDS: PIPERACILLIN/TAZOBACTAM 3.375 GM in SODIUM CHLORIDE 0.9% MINIBAG 100 ML IV SCH ×3 (04:00→20:38)
[2021-04-05] MEDS: PANTOPRAZOLE 40 MG TABLET PO SCH (06:23)
[2021-04-05 06:29] LABS: BASOPHILS % (AUTO) 0.3 %; EOSINOPHILS # (AUTO) 0.1 10^3/uL (0.0-0.7); HCT - HEMATOCRIT 40.3 % (37.0-47.0); HGB - HEMOGLOBIN 12.5 g/dL (12.0-16.0); LYMPHOCYTES # (AUTO) 0.8 10^3/uL (1.5-3.5); MEAN CORPUSCULAR VOLUME 93.5 fL (81.0-99.0); MEAN PLATELET VOLUME 9.3 fL (7.9-10.8); MONOCYTES # (AUTO) 0.3 10^3/uL (0.0-1.0); MONOCYTES % (AUTO) 4.1 %; NEUTROPHILS # (AUTO) 5.8 10^3/uL (1.5-6.6); NEUTROPHILS % (AUTO) 83.2 %; PLT - PLATELET COUNT 278 10^3/uL (130-450); RED BLOOD COUNT 4.31 10^6/uL (4.20-5.40); RED CELL DISTRIBUTION WIDTH 13.1 % (12.0-15.0)
[2021-04-05 06:40] LABS: ALBUMIN 2.9 g/dL (3.2-5.5); ALBUMIN/GLOBULIN RATIO 0.9 (1.0-2.2); BILIRUBIN,TOTAL 2.1 mg/dL (0.2-1.0); CALCIUM 8.4 mg/dL (8.5-10.3); CREATININE 0.6 mg/dL (0.4-1.0); POTASSIUM 3.6 mmol/L (3.5-5.0); TOTAL PROTEIN 6.2 g/dL (6.7-8.2)
--- NOTE | 2021-04-05 08:31 | PROVIDER PROGRESS NOTE ---
Subjective - General Admit Date: 04/03/21 Procedure Date: 04/01/21 Post Op Days: 4 Procedure Performed: Lap elvie - Review of Systems Wound/Incisions: positive: Healing well Drain Type: pig tail in the RUQ Drain Output Description: bilious General: positive: Fever Gastrointestinal: positive: Nausea, Abdominal pain Genitourinary: positive: Other (Constipation) - Other Other Information/Narrative: Feeling so much better now with the drain in place. Had some diarrhea this AM after taking gastrograffin therapeutically. She is much better Objective - Patient Data Vital Signs: Vital Signs x48h Temp Pulse Resp BP Pulse Ox 04/05/21 05:41 36.5 C 70 18 106/66 98 04/05/21 00:45 36.5 C 105 H 16 114/69 95 Weight: Weight 04/03/21 04/04/21 04/05/21 23:59 23:59 23:59 Weight (kg) 75 kg Intake & Output: Intake and Output Totals x24h 04/03/21 04/04/21 04/05/21 23:59 23:59 23:59 Intake Total 914.812 3715.666 1331.667 Output Total 400 430 Balance 166.124 6379.666 901.667 - Lab Results Lab Results: 04/05/21 05:41 04/05/21 05:41 Other Lab Results: Lab Results x24hrs 04/05/21 04/05/21 04/04/21 Range/Units 05:41 05:41 18:40 WBC 7.0 (4.8-10.8) x10^3/uL RBC 4.31 (4.20-5.40) 10^6/uL Hgb 12.5 (12.0-16.0) g/dL Hct 40.3 (37.0-47.0) % MCV 93.5 (81.0-99.0) fL MCH 29.0 (27.0-31.0) pg MCHC 31.0 L (32.0-36.0) g/dL RDW 13.1 (12.0-15.0) % Plt Count 278 (130-450) 10^3/uL MPV 9.3 (7.9-10.8) fL Neut # (Auto) 5.8 (1.5-6.6) 10^3/uL Lymph # (Auto) 0.8 L (1.5-3.5) 10^3/uL [place] # (Auto) 0.3 (0.0-1.0) 10^3/uL Eos # (Auto) 0.1 (0.0-0.7) 10^3/uL Baso # (Auto) 0.0 (0.0-0.1) 10^3/uL Absolute Nucleated RBC 0.00 x10^3/uL Nucleated RBC % 0.0 /100WBC PT (9.9-12.6) secs INR (0.8-1.2) Sodium 139 (135-145) mmol/L Potassium 3.6 (3.5-5.0) mmol/L Chloride 104 (101-111) mmol/L Carbon Dioxide 22 (21-32) mmol/L Anion Gap 13.0 (6-13) BUN 23 H (6-20) mg/dL Creatinine 0.6 (0.4-1.0) mg/dL Estimated GFR (MDRD) 103 (>89) Glucose 103 H (70-100) mg/dL Calcium 8.4 L (8.5-10.3) mg/dL Total Bilirubin 2.1 H (0.2-1.0) mg/dL AST 20 (10-42) IU/L ALT 55 (10-60) IU/L Alkaline Phosphatase 73 (42-121) IU/L Total Protein 6.2 L (6.7-8.2) g/dL Albumin 2.9 L (3.2-5.5) g/dL Globulin 3.3 (2.1-4.2) g/dL Albumin/Globulin Ratio 0.9 L (1.0-2.2) Fluid Source Fluid Color Fluid Clarity Fluid WBC /mm^3 Fluid RBC /mm^3 Fluid Neutrophils % % Fluid Lymphocytes % % Fluid Macrophages % % Fld Mesothelial Cell % % Nasal Adenovirus (PCR) NOT DETECTED Nasal B. parapertussis DNA (PCR) NOT DETECTED Nasal Coronavir 229E PCR NOT DETECTED Nasal Coronavir HKU1 PCR NOT DETECTED Nasal Coronavir NL63 PCR NOT DETECTED Nasal Coronavir OC43 PCR NOT DETECTED Nasal Enterovir/Rhinovir PCR NOT DETECTED Nasal Influenza B PCR NOT DETECTED Nasal Influenza A PCR NOT DETECTED Nasal Parainfluen 1 PCR NOT DETECTED Nasal Parainfluen 2 PCR NOT DETECTED Nasal Parainfluen 3 PCR NOT DETECTED Nasal Parainfluen 4 PCR NOT DETECTED Nasal RSV (PCR) NOT DETECTED Nasal B.pertussis DNA PCR NOT DETECTED Nasal C.pneumoniae (PCR) NOT DETECTED Jeffrey Human Metapneumo PCR NOT DETECTED Nasal M.pneumoniae (PCR) NOT DETECTED Nasal SARS-CoV-2 (PCR) NOT DETECTED 04/04/21 04/04/21 04/04/21 Range/Units 16:35 14:51 05:24 WBC (4.8-10.8) x10^3/uL RBC (4.20-5.40) 10^6/uL Hgb (12.0-16.0) g/dL Hct (37.0-47.0) % MCV (81.0-99.0) fL MCH (27.0-31.0) pg MCHC (32.0-36.0) g/dL RDW (12.0-15.0) % Plt Count (130-450) 10^3/uL MPV (7.9-10.8) fL Neut # (Auto) (1.5-6.6) 10^3/uL Lymph # (Auto) (1.5-3.5) 10^3/uL [place] # (Auto) (0.0-1.0) 10^3/uL Eos # (Auto) (0.0-0.7) 10^3/uL Baso # (Auto) (0.0-0.1) 10^3/uL Absolute Nucleated RBC x10^3/uL Nucleated RBC % /100WBC PT 13.4 H (9.9-12.6) secs INR 1.2 (0.8-1.2) Sodium (135-145) mmol/L Potassium (3.5-5.0) mmol/L Chloride (101-111) mmol/L Carbon Dioxide (21-32) mmol/L Anion Gap (6-13) BUN (6-20) mg/dL Creatinine (0.4-1.0) mg/dL Estimated GFR (MDRD) (>89) Glucose (70-100) mg/dL Calcium (8.5-10.3) mg/dL Total Bilirubin 2.6 H (0.2-1.0) mg/dL AST (10-42) IU/L ALT (10-60) IU/L Alkaline Phosphatase (42-121) IU/L Total Protein (6.7-8.2) g/dL Albumin (3.2-5.5) g/dL Globulin (2.1-4.2) g/dL Albumin/Globulin Ratio (1.0-2.2) Fluid Source PERITONEAL Fluid Color BROWN Fluid Clarity CLOUDY Fluid WBC 1648 /mm^3 Fluid RBC 8000 /mm^3 Fluid Neutrophils % 75 % Fluid Lymphocytes % 5 % Fluid Macrophages % 20 % Fld Mesothelial Cell % 0 % Nasal Adenovirus (PCR) Nasal B. parapertussis DNA (PCR) Nasal Coronavir 229E PCR Nasal Coronavir HKU1 PCR Nasal Coronavir NL63 PCR Nasal Coronavir OC43 PCR Nasal Enterovir/Rhinovir PCR Nasal Influenza B PCR Nasal Influenza A PCR Nasal Parainfluen 1 PCR Nasal Parainfluen 2 PCR Nasal Parainfluen 3 PCR Nasal Parainfluen 4 PCR Nasal RSV (PCR) Nasal B.pertussis DNA PCR Nasal C.pneumoniae (PCR) Jeffrey Human Metapneumo PCR Nasal M.pneumoniae (PCR) Nasal SARS-CoV-2 (PCR) - Current Medications Current Medications: Current Medications Generic Name Dose Route Start Last Admin Trade Name Freq PRN Reason Stop Dose Admin Acetaminophen 500 mg 04/04/21 13:00 04/05/21 06:23 Acetaminophen 500 Mg Tablet PO 500 mg Q4HR JANESSA Administration Anastrozole 1 mg 04/04/21 09:00 04/04/21 09:00 Anastrozole 1 Mg Tablet PO 1 mg DAILY JANESSA Administration Sodium Chloride 1,000 mls @ 100 mls/hr 04/03/21 15:00 04/05/21 06:32 Normal Saline 0.9% IV 100 mls/hr .Q10H JANESSA Infusion Piperacillin Sod/Tazobactam 100 mls @ 25 mls/hr 04/03/21 19:30 04/05/21 04:00 Sod 3.375 gm/ Sodium Chloride IV 25 mls/hr Q8H JANESSA Administration Ketorolac Tromethamine 30 mg 04/04/21 19:00 04/05/21 06:23 Ketorolac 30 Mg/Ml Vial IVP 04/09/21 18:59 30 mg Q6HR JANESSA Administration Lisinopril 5 mg 04/04/21 09:00 04/04/21 08:56 Lisinopril 5 Mg Tablet PO 5 mg DAILY JANESSA Administration Ondansetron HCl 4 mg 04/03/21 14:17 04/05/21 01:21 Ondansetron 4 Mg/2 Ml Vial IVP 4 mg Q6H PRN Administration Nausea / Vomiting Pantoprazole Sodium 40 mg 04/03/21 15:00 04/05/21 06:23 Pantoprazole 40 Mg Tablet PO 40 mg QDAC JANESSA Administration Pravastatin Sodium 20 mg 04/03/21 21:00 04/04/21 20:09 Pravastatin 10 Mg Tablet PO 20 mg QPM JANESSA Administration Sodium Chloride 10 ml 04/03/21 17:00 04/05/21 01:24 Sodium Chloride Flush 0.9% 10 Ml Syringe IVP Not Given 0100,0900,1700 JANESSA Sodium Chloride 10 ml 04/03/21 14:17 04/04/21 11:21 Sodium Chloride Flush 0.9% 10 Ml Syringe IVP 10 ml PRN PRN Administration NEEDED PER PROVIDER ORDERS ABX Reporting Has patient been on IV antibiotics over the past 48 hours?: Yes Impression/Plan - Problem List Problem List: Feeling much better. To Prov [facility] lab for ERCP and stent today. Back her following the procedure for monitoring.
[2021-04-05] MEDS ORDERED: HYDROmorphone 1 MG/ML CARPUJECT IVP PRN (11:11)
[2021-04-05] MEDS: lisinopriL 5 MG TABLET PO SCH (12:01)
[2021-04-05] MEDS: ANASTROZOLE 1 MG TABLET PO SCH (12:01)
[2021-04-05] MEDS: PRAVASTATIN 10 MG TABLET PO SCH (20:37)
[2021-04-06] MEDS: SODIUM CHLORIDE FLUSH 0.9% 10 ML SYRINGE IVP SCH ×3 (00:21→17:53)
[2021-04-06] MEDS: KETOROLAC 30 MG/ML VIAL IVP SCH ×4 (00:21→17:53)
[2021-04-06] MEDS: ACETAMINOPHEN 500 MG TABLET PO SCH ×6 (00:21→21:07)
[2021-04-06] MEDS: SODIUM CHLORIDE 0.9% 1,000 ML IV SCH ×4 (00:25→20:10)
[2021-04-06] MEDS: PIPERACILLIN/TAZOBACTAM 3.375 GM in SODIUM CHLORIDE 0.9% MINIBAG 100 ML IV SCH ×3 (03:13→19:19)
[2021-04-06 06:03] LABS: BASOPHILS % (AUTO) 0.2 %; EOSINOPHILS # (AUTO) 0.2 10^3/uL (0.0-0.7); EOSINOPHILS % (AUTO) 2.5 %; HCT - HEMATOCRIT 36.3 % (37.0-47.0); HGB - HEMOGLOBIN 11.3 g/dL (12.0-16.0); LYMPHOCYTES # (AUTO) 0.7 10^3/uL (1.5-3.5); LYMPHOCYTES % (AUTO) 11.4 %; MEAN CORPUSCULAR HEMOGLOBIN 29.4 pg (27.0-31.0); MEAN CORPUSCULAR HGB CONC 31.1 g/dL (32.0-36.0); MEAN CORPUSCULAR VOLUME 94.5 fL (81.0-99.0); MEAN PLATELET VOLUME 8.9 fL (7.9-10.8); MONOCYTES # (AUTO) 0.3 10^3/uL (0.0-1.0); MONOCYTES % (AUTO) 5.6 %; NEUTROPHILS # (AUTO) 4.8 10^3/uL (1.5-6.6); NEUTROPHILS % (AUTO) 79.8 %; PLT - PLATELET COUNT 273 10^3/uL (130-450); RED BLOOD COUNT 3.84 10^6/uL (4.20-5.40); RED CELL DISTRIBUTION WIDTH 12.9 % (12.0-15.0); WHITE BLOOD COUNT 6.1 x10^3/uL (4.8-10.8)
[2021-04-06 06:20] LABS: ALBUMIN 2.6 g/dL (3.2-5.5); ALBUMIN/GLOBULIN RATIO 0.9 (1.0-2.2); BILIRUBIN,TOTAL 1.6 mg/dL (0.2-1.0); CREATININE 0.6 mg/dL (0.4-1.0); POTASSIUM 3.2 mmol/L (3.5-5.0); TOTAL PROTEIN 5.5 g/dL (6.7-8.2)
[2021-04-06] MEDS: PANTOPRAZOLE 40 MG TABLET PO SCH (06:27)
[2021-04-06] MEDS: ANASTROZOLE 1 MG TABLET PO SCH (08:46)
[2021-04-06] MEDS: lisinopriL 5 MG TABLET PO SCH (08:47)
[2021-04-06] MEDS: POTASSIUM CHLOR 10 MEQ/100 ML 10 MEQ/100 ML BAG IV SCH ×4 (12:15→17:52)
--- NOTE | 2021-04-06 12:20 | PROVIDER PROGRESS NOTE ---
Subjective - Prog Note Date Prog Note Date: 04/06/21 - Subjective Pt reports feeling: Improved (minimal pain. denies nausea. appetite improving) Objective - Vital Signs/Intake & Output Reviewed Vital Signs: Yes Vital Signs: Vital Signs x48h Temp Pulse Resp BP Pulse Ox 04/06/21 07:20 36.2 C L 84 16 131/83 H 97 Intake & Output: Intake & Output 04/03/21 04/04/21 04/05/21 04/06/21 23:59 23:59 23:59 23:59 Intake Total 432.165 4987.666 2412.398 9604 Output Total 400 630 175 Balance 401.153 8966.666 8165.882 8107 - Objective General Appearance: positive: No acute distress, Alert Eyes Bilateral: positive: No scleral icterus ENT: positive: No signs of dehydration Neck: positive: No JVD Respiratory: positive: No respiratory distress Abdomen: positive: Non-tender, No distention, Other (still with considerable bilious drainage) Neurologic/Psychiatric: positive: Oriented x3 - Lab Results Fish Bones: 04/06/21 05:44 04/06/21 05:44 Other Labs: Lab Results x24hrs 04/06/21 04/06/21 Range/Units 05:44 05:44 WBC 6.1 (4.8-10.8) x10^3/uL RBC 3.84 L (4.20-5.40) 10^6/uL Hgb 11.3 L (12.0-16.0) g/dL Hct 36.3 L (37.0-47.0) % MCV 94.5 (81.0-99.0) fL MCH 29.4 (27.0-31.0) pg MCHC 31.1 L (32.0-36.0) g/dL RDW 12.9 (12.0-15.0) % Plt Count 273 (130-450) 10^3/uL MPV 8.9 (7.9-10.8) fL Neut # (Auto) 4.8 (1.5-6.6) 10^3/uL Lymph # (Auto) 0.7 L (1.5-3.5) 10^3/uL [place] # (Auto) 0.3 (0.0-1.0) 10^3/uL Eos # (Auto) 0.2 (0.0-0.7) 10^3/uL Baso # (Auto) 0.0 (0.0-0.1) 10^3/uL Absolute Nucleated RBC 0.00 x10^3/uL Nucleated RBC % 0.0 /100WBC Sodium 141 (135-145) mmol/L Potassium 3.2 L (3.5-5.0) mmol/L Chloride 110 (101-111) mmol/L Carbon Dioxide 20 L (21-32) mmol/L Anion Gap 11.0 (6-13) BUN 19 (6-20) mg/dL Creatinine 0.6 (0.4-1.0) mg/dL Estimated GFR (MDRD) 103 (>89) Glucose 84 (70-100) mg/dL Calcium 8.0 L (8.5-10.3) mg/dL Total Bilirubin 1.6 H (0.2-1.0) mg/dL AST 12 (10-42) IU/L ALT 34 (10-60) IU/L Alkaline Phosphatase 68 (42-121) IU/L Total Protein 5.5 L (6.7-8.2) g/dL Albumin 2.6 L (3.2-5.5) g/dL Globulin 2.9 (2.1-4.2) g/dL Albumin/Globulin Ratio 0.9 L (1.0-2.2) Assessment/Plan - Problem List (1) Abdominal pain Impression: Much improved. diet low fat replace k drain teaching likely home tomorrow with drain Qualifiers: Abdominal location: unspecified location Qualified Code(s): R10.9 - Unspecified abdominal pain
[2021-04-06] MEDS: PRAVASTATIN 10 MG TABLET PO SCH (21:07)
[2021-04-07] MEDS: ACETAMINOPHEN 500 MG TABLET PO SCH ×3 (00:40→08:05)
[2021-04-07] MEDS: SODIUM CHLORIDE FLUSH 0.9% 10 ML SYRINGE IVP SCH ×2 (00:40→08:07)
[2021-04-07] MEDS: KETOROLAC 30 MG/ML VIAL IVP SCH ×2 (00:40→06:18)
[2021-04-07] MEDS: PIPERACILLIN/TAZOBACTAM 3.375 GM in SODIUM CHLORIDE 0.9% MINIBAG 100 ML IV SCH (03:24)
[2021-04-07 05:39] LABS: BASOPHILS % (AUTO) 0.3 %; EOSINOPHILS # (AUTO) 0.2 10^3/uL (0.0-0.7); EOSINOPHILS % (AUTO) 4.9 %; HCT - HEMATOCRIT 32.7 % (37.0-47.0); HGB - HEMOGLOBIN 10.5 g/dL (12.0-16.0); LYMPHOCYTES # (AUTO) 0.6 10^3/uL (1.5-3.5); LYMPHOCYTES % (AUTO) 14.6 %; MEAN CORPUSCULAR HEMOGLOBIN 29.2 pg (27.0-31.0); MEAN CORPUSCULAR HGB CONC 32.1 g/dL (32.0-36.0); MEAN CORPUSCULAR VOLUME 91.1 fL (81.0-99.0); MEAN PLATELET VOLUME 8.5 fL (7.9-10.8); MONOCYTES # (AUTO) 0.3 10^3/uL (0.0-1.0); MONOCYTES % (AUTO) 6.4 %; NEUTROPHILS # (AUTO) 2.9 10^3/uL (1.5-6.6); NEUTROPHILS % (AUTO) 73.5 %; PLT - PLATELET COUNT 248 10^3/uL (130-450); RED BLOOD COUNT 3.59 10^6/uL (4.20-5.40); RED CELL DISTRIBUTION WIDTH 12.7 % (12.0-15.0); WHITE BLOOD COUNT 3.9 x10^3/uL (4.8-10.8)
[2021-04-07 05:47] LABS: ALBUMIN 2.8 g/dL (3.2-5.5); BILIRUBIN,TOTAL 1.1 mg/dL (0.2-1.0); CALCIUM 7.8 mg/dL (8.5-10.3); CREATININE 0.5 mg/dL (0.4-1.0); TOTAL PROTEIN 5.6 g/dL (6.7-8.2)
[2021-04-07] MEDS: SODIUM CHLORIDE 0.9% 1,000 ML IV SCH (06:21)
[2021-04-07] MEDS: PANTOPRAZOLE 40 MG TABLET PO SCH (06:21)
[2021-04-07 07:40] VITALS: BP 156/86
[2021-04-07] MEDS: ANASTROZOLE 1 MG TABLET PO SCH (08:06)
[2021-04-07] MEDS: lisinopriL 5 MG TABLET PO SCH (08:06)
[2021-04-07] MEDS ORDERED: POTASSIUM CHLORIDE 20 MEQ TABLET PO ONE (09:13)
--- NOTE | 2021-04-07 09:16 | Discharge Plan ---
Discharge Plan Problem Reviewed?: Yes Disposition: 01 Home, Self Care Condition: Good Diet: Regular (low fat for 2 weeks) Activity Restrictions: No Restrictions Shower Restrictions: No (keep drain site covered) Driving Restrictions: No Instruction Topics: T Tube Care Dc Assessment: Doing well after drain placement and ERCP procedure. Home with drain Additional Instructions or Follow Up instructions: Call the surgery office with any concerns and call to make a follow up appointment [phone] No Smoking: If you smoke, Please STOP! Call for help. Follow-up with: Melanie Alvarenga DO [Primary Care Provider] - Iam Palm MD [Provider Admit Priv/Credential] -
--- NOTE | 2021-04-07 09:19 | DISCHARGE SUMMARY ---
"Discharge Summary Admit Date: 04/03/21 Discharge Date: 04/07/21 Discharging Provider: bonifacio goldstein md Code Status: Attempt Resuscitation Discharge Facility Name: [facility] - DIAGNOSES Admission Diagnoses: bile leak folllowing cholecystectomy Discharge Diagnoses with Status of Each Condition: Home in good condition with drain - HPI History of Present Illness: Presented with pain following laparoscopic cholecystectomy. Had drain tube placement followed by ERCP and stent. She is much improved. - CONSULTS | PROCEDURES Consultations: IR for drain tube placement and [facility] for ERCP with stent Procedures: as above - HOSPITAL COURSE Hospital Course: Quickly improved after ERCP procedure. Drain output decreased. Tolerating diet well. Minimal to no abdominal discomfort. - ALLERGIES Allergies/Adverse Reactions: Allergies Allergy/AdvReac Type Severity Reaction Status Date / Time No Known Drug Allergies Allergy Verified 01/16/21 10:14 - MEDICATIONS Home Medications: Ambulatory Orders Medication Instructions Recorded Confirmed Lisinopril [Zestril] 5 mg PO DAILY 04/27/20 04/03/21 Pravastatin [Pravachol] 20 mg PO QPM 04/27/20 04/03/21 Pantoprazole Sodium 40 mg PO DAILY 05/23/20 04/03/21 Anastrozole 1 mg PO DAILY #90 tablet 08/07/20 04/03/21 Ondansetron Odt [Zofran Odt] 4 mg TL Q6H PRN #10 tablet 04/01/21 04/03/21 oxyCODONE [Roxicodone] 5 mg PO Q6H PRN #20 tablet 04/01/21 04/03/21 - PHYSICAL EXAM AT DISCHARGE General Appearance: positive: No acute distress, Alert Eyes Bilateral: positive: PERRL, EOMI, No scleral icterus ENT: positive: No signs of dehydration Neck: positive: No JVD Respiratory: positive: No respiratory distress Abdomen: positive: Non-tender, No distention, Other (drain clear bile. output much decreased) Neurologic/Psychiatric: positive: Oriented x3 - LABS Result Diagrams: 04/07/21 05:21 04/07/21 05:21 - FOLLOW UP Follow Up: Surgery. Call to make an appointment [phone]"
== END 2021-04-07 10:30 | disposition home or self-care (01) | DRG 393 ==
LOC: ED 11:58 → MS2 14:17
PROVIDERS: ADMIT Surgery; ATTEND Surgery
PROC: 0W9G30Z Drainage of Peritoneal Cavity with Drainage Device, Percutaneous Approach (ICD-10-PCS; principal; 2021-04-04)
PROC: 0F798DZ Dilation of Common Bile Duct with Intraluminal Device, Via Natural or Artificial Opening Endoscopic (ICD-10-PCS; 2021-04-05)
PROC: 0F7D8DZ Dilation of Pancreatic Duct with Intraluminal Device, Via Natural or Artificial Opening Endoscopic (ICD-10-PCS; 2021-04-05)
DX: K91.89 Other postprocedural complications and disorders of digestive system (principal); K83.2 Perforation of bile duct; Z90.49 Acquired absence of other specified parts of digestive tract; K21.9 Gastro-esophageal reflux disease without esophagitis; Z20.822 Contact with and (suspected) exposure to COVID-19; I10 Essential (primary) hypertension; E78.00 Pure hypercholesterolemia, unspecified
CPT/HCPCS: 0202U; 36415; 49406; 74177; 78226; 80053; 81001; 82247; 83690; 85025; 85610; 87070; 87205; 89051; 96374; 99284; 99285; A9270; J0131; J1170; Q9963; Q9967; 81003; 87086

== ENCOUNTER 2021-04-11 10:43 | Outpatient (CLI) | payer OTHER ==
--- NOTE | 2021-04-11 12:44 | XRAY Report ---
PROCEDURE: Abdomen 1 View X-Ray INDICATIONS: POSTPROCEDURAL BILE DUCT LEAK TECHNIQUE: 1 view of the abdomen were acquired. COMPARISON: The 04/04/2021 FINDINGS: Surgical changes and devices: Bile duct stent is noted. Clips are present. Bowel: No pneumoperitoneum. The bowel gas pattern is normal. Soft tissues: No masses; visualized solid organ contours appear normal in size. No suspicious abdom inal calcifications. Bones: No suspicious bony abnormalities. IMPRESSION: Nonspecific bowel gas pattern. Common bile duct stent is noted. Reviewed by: Ligia Talley MD on 04/11/2021 12:43 PM PDT Approved by: Ligia Talley MD on 04/11/2021 12:43 PM PDT Station ID: [id number]
== END 2021-04-11 10:44 | disposition home or self-care (01) ==
LOC: DI 10:43
PROVIDERS: ATTEND Surgery
DX: K91.89 Other postprocedural complications and disorders of digestive system (principal)

== ENCOUNTER 2021-04-26 07:49 | Outpatient (CLI) | payer OTHER ==
--- NOTE | 2021-04-29 10:38 | Mammography Report ---
BILATERAL DIGITAL DIAGNOSTIC MAMMOGRAM 3D/2D - LEFT BREAST POST LUMPECTOMY: 04/26/2021 CLINICAL: Post left lumpectomy. Routine screening. Personal history of left breast cancer. Comparison is made to exams dated: 03/20/2020 mammogram, 02/14/2020 mammogram, 05/28/2020 localization, 09/27/2018 mammogram, and 09/22/2017 mammogram - [facility]. The tissue of both breas ts is heterogeneously dense. This may lower the sensitivity of mammography. There are benign post operative findings in the left breast. No significant masses, calcifications, or other findings are seen in either breast. There has been no significant interval change. IMPRESSION: BENIGN There is no mammographic evidence of malignancy. A 1 year screening mammogram is recommended. This exam was interpreted at Station ID: [id number]. NOTE: For mammograms, a report in lay terms will be sent to the patient. Approximately 15% of breast malignancies will not be visualized mammographically. In the management of a palpable breast mass, a negative mammogram must not discourage biopsy of a clinically suspicious lesion. Electronically Signed By: Carroll white/adrienne:04/26/2021 08:49:46 ACR BI-RADS Category 2: Benign Finding(s) 3342F PARENCHYMAL PATTERN: (D) - The breast(s) demonstrate(s) heterogeneously dense fibroglandular odin ramirez. BI-RADS CATEGORY: (2) - 2 RECOMMENDATION: (ANNUAL) - Recommend routine annual screening mammography. 20220427 1 year screening LATERALITY: (B)
== END 2021-04-26 07:50 | disposition home or self-care (01) ==
LOC: DI 07:49
PROVIDERS: ATTEND Surgery
DX: C50.912 Malignant neoplasm of unspecified site of left female breast (principal); Z90.12 Acquired absence of left breast and nipple

== ENCOUNTER 2021-05-03 17:29 | Outpatient (CLI) | payer OTHER | END 2021-05-03 23:59 | disposition home or self-care (01) | LOC: LAB 17:29 | PROVIDERS: ATTEND Family Medicine | DX: R39.9 Unspecified symptoms and signs involving the genitourinary system (principal) | CPT/HCPCS: 87086 ==

== ENCOUNTER 2021-05-10 07:00 | Outpatient (CLI) | payer OTHER | END 2021-05-10 23:59 | disposition home or self-care (01) | LOC: COV 07:00 | PROVIDERS: ATTEND Internal Medicine Gastroenterology | DX: Z01.812 Encounter for preprocedural laboratory examination (principal); Z20.822 Contact with and (suspected) exposure to COVID-19 ==

== ENCOUNTER 2021-06-18 09:28 | Day surgery (SDC) | payer OTHER ==
[2021-06-18] MEDS ORDERED: LACTATED RINGERS 1,000 ML IV ONE (09:50)
--- NOTE | 2021-06-18 10:36 | ANESTHESIA ---
Pre-Anesthesia VS, & Labs - Diagnosis MUTYH mutation - Procedure colonoscopy Vital Signs: Temp Pulse Resp BP Pulse Ox 36.3 C L 99 16 117/82 H 100 06/18/21 09:35 06/18/21 09:35 06/18/21 09:35 06/18/21 09:35 06/18/21 09:35 Height: 5 ft 9 in Weight (kg): 63 kg Body Mass Index: 20.5 BMI Classification: Healthy weight - NPO >8 hours - Is Patient ?: No Home Medications and Allergies Lisinopril [Zestril] 5 mg PO DAILY 04/27/20 Pravastatin [Pravachol] 20 mg PO QPM 04/27/20 Pantoprazole Sodium 40 mg PO DAILY 05/23/20 Allergies/Adverse Reactions: Allergies Allergy/AdvReac Type Severity Reaction Status Date / Time No Known Drug Allergies Allergy Verified 06/18/21 10:04 Anes History & Medical History - Anesthetic History Anesthesia Complications: reports: Post-Operative Nausea/Vomiting - Medical History Cardiovascular: reports: Hypertension, High cholesterol Pulmonary: reports: None Gastrointestinal: reports: GERD (controlled with medication) Urinary: reports: None Neuro: reports: None Musculoskeletal: reports: None Endocrine/Autoimmune: reports: None Blood Disorders: reports: None Skin: reports: None Smoking Status: Never smoker Psychosocial: reports: No issues indicated History of Cancer?: Yes (history breast cancer. s/p radiation) - Surgical History General: reports: Cholecystectomy, Colonoscopy, EGD, Other Gynecologic: reports: Hysterectomy, Other (breast lumpectomy) Exam General: Alert, Oriented x3, Cooperative, No acute distress Dental: Dentures full Upper, Dentures full Lower Mouth Openin Fingerbreadth Neck Mobility: Normal Mallampati classification: II Thyromental Distance: 4-6 cm Mental/Cognitive Status: Alert/Oriented X3, Normal for patient Plan Anesthesia Type: Total IV Consent for Procedure(s) Verified and Reviewed: Yes Code Status: Attempt Resuscitation ASA classification: 2-Mild systemic disease Is this case an emergency?: No
[2021-06-18] MEDS ORDERED: MIDAZOLAM 2 MG/2 ML VIAL ONE (11:07)
[2021-06-18] MEDS ORDERED: fentaNYL 100 MCG/2 ML VIAL ONE (11:07)
[2021-06-18] MEDS ORDERED: PROPOFOL 200 MG/20 ML VIAL IVP ONE (11:09)
[2021-06-18] MEDS ORDERED: LACTATED RINGERS 500 ML IV ONE (11:39)
[2021-06-18 12:18] VITALS: BP 101/72
--- NOTE | 2021-06-18 12:51 | ANESTHESIA POST OP EVALUATION ---
Anesthesia Post Eval - Post Anesthesia Eval Vitals: Last Vital Signs Temp 36.4 C L 06/18/21 11:59 Pulse 61 06/18/21 12:17 Resp 12 06/18/21 12:17 BP 101/72 06/18/21 12:17 Pulse Ox 99 06/18/21 12:17 CV Function Including HR & BP: Stable Pain Control: Satisfactory Nausea & Vomiting: Negative Mental Status: Baseline Respiratory Status: Airway Patent Hydration Status: Satisfactory Anesthesia Complications: None
== END 2021-06-18 09:29 | disposition home or self-care (01) ==
LOC: SDS 09:28
PROVIDERS: ATTEND Surgery
DX: Z12.11 Encounter for screening for malignant neoplasm of colon (principal); Z15.09 Genetic susceptibility to other malignant neoplasm; K64.8 Other hemorrhoids; I10 Essential (primary) hypertension; E78.00 Pure hypercholesterolemia, unspecified; K21.9 Gastro-esophageal reflux disease without esophagitis; Z85.3 Personal history of malignant neoplasm of breast; Z79.899 Other long term (current) drug therapy
CPT/HCPCS: 45378; 81599; 83630; 87015; 87177; 87209; 87272; 87329; 87493; J7120; 87045; 87046

== ENCOUNTER 2022-04-21 13:23 | Outpatient (CLI) | payer OTHER ==
--- NOTE | 2022-04-22 11:51 | Mammography Report ---
BILATERAL DIGITAL SCREENING MAMMOGRAM 3D/2D WITH EXAGGERATED CC: 04/21/2022 CLINICAL: Routine screening. Personal history of left breast cancer. Comparison is made to exams dated: 04/26/2021 mammogram, 05/28/2020 mammogram, 04/04/2020 mammogram, 03/20/2020 mammogram, 02/14/2020 mammogram, and 09/27/2018 mammogram - [facility]. Both breasts are heterogeneously dense, which may obscure small masses (category c / 51-75% glandula r tissue). There are benign post operative findings in the left breast. No significant masses, calcifications, or other findings are seen in either breast. There has been no significant interval change. IMPRESSION: BENIGN There is no mammographic evidence of malignancy. A 1 year screening mammogram is recommended. This exam was interpreted at Station ID: [id number]. NOTE: For mammograms, a report in lay terms will be sent to the patient. Approximately 15% of breast malignancies will not be visualized mammographically. In the management of a palpable breast mass, a negative mammogram must not discourage biopsy of a clinically suspicious lesion. Electronically Signed By: Carroll Quinn M.D. [email or web address]:04/21/2022 16:10:06 ACR BI-RADS Category 2: Benign Finding(s) 3342F PARENCHYMAL PATTERN: (D) - The breast(s) demonstrate(s) heterogeneously dense fibroglandular odin ramirez. BI-RADS CATEGORY: (2) - 2 RECOMMENDATION: (ANNUAL) - Recommend routine annual screening mammography. [id number] 1 year screening LATERALITY: (B)
== END 2022-04-21 13:24 | disposition home or self-care (01) ==
LOC: DI 13:23
PROVIDERS: ATTEND Internal Medicine Hematology & Oncology
DX: Z12.31 Encounter for screening mammogram for malignant neoplasm of breast (principal); Z85.3 Personal history of malignant neoplasm of breast

== ENCOUNTER 2022-05-30 08:24 | Outpatient (CLI) | payer OTHER ==
[2022-05-30 11:46] LABS: BASOPHILS % (AUTO) 0.5 %; EOSINOPHILS # (AUTO) 0.1 10^3/uL (0.0-0.7); EOSINOPHILS % (AUTO) 1.7 %; HCT - HEMATOCRIT 43.2 % (37.0-47.0); HGB - HEMOGLOBIN 13.9 g/dL (12.0-16.0); LYMPHOCYTES # (AUTO) 1.3 10^3/uL (1.5-3.5); LYMPHOCYTES % (AUTO) 32.8 %; MEAN CORPUSCULAR HEMOGLOBIN 29.6 pg (27.0-31.0); MEAN CORPUSCULAR HGB CONC 32.2 g/dL (32.0-36.0); MEAN CORPUSCULAR VOLUME 92.1 fL (81.0-99.0); MEAN PLATELET VOLUME 9.7 fL (7.9-10.8); MONOCYTES # (AUTO) 0.3 10^3/uL (0.0-1.0); MONOCYTES % (AUTO) 6.5 %; NEUTROPHILS # (AUTO) 2.3 10^3/uL (1.5-6.6); NEUTROPHILS % (AUTO) 58.3 %; PLT - PLATELET COUNT 234 10^3/uL (130-450); RED BLOOD COUNT 4.69 10^6/uL (4.20-5.40); RED CELL DISTRIBUTION WIDTH 12.4 % (12.0-15.0)
[2022-05-30 12:32] LABS: ALBUMIN 4.7 g/dL (3.2-5.5); ALBUMIN/GLOBULIN RATIO 1.6 (1.0-2.2); ALKALINE PHOSPHATASE 57 IU/L (42-121); ALT ALANINE AMINOTRANSFERASE 14 IU/L (10-60); AST ASPARTATE AMINOTRANSFERASE 15 IU/L (10-42); BILIRUBIN,TOTAL 0.6 mg/dL (0.2-1.0); BUN - BLOOD UREA NITROGEN 17 mg/dL (6-20); CALCIUM 9.7 mg/dL (8.5-10.3); CARBON DIOXIDE - CO2 27 mmol/L (21-32); CHLORIDE 101 mmol/L (101-111); CHOL/HDL RATIO 3.6 (<4.4); CHOLESTEROL 208 mg/dL; CREATININE 0.6 mg/dL (0.4-1.0); GFR - MDRD 103 (>89); GLUCOSE 89 mg/dL (70-100); HDL CHOLESTEROL 58 mg/dL; LDL CHOLESTEROL,CALCULATED 118 mg/dL; SODIUM 138 mmol/L (135-145); TOTAL PROTEIN 7.6 g/dL (6.7-8.2); TRIGLYCERIDES 158 mg/dL; VLDL CHOLESTEROL 32 mg/dL
[2022-05-30 12:33] LABS: THYROID STIMULATING HORMONE 1.67 uIU/mL (0.34-5.60)
== END 2022-05-30 08:25 | disposition home or self-care (01) ==
LOC: LAB.N 08:24
PROVIDERS: ATTEND Nurse Practitioner
DX: I10 Essential (primary) hypertension (principal); Z13.220 Encounter for screening for lipoid disorders; R53.83 Other fatigue
CPT/HCPCS: 36415; 80053; 80061; 82607; 83721; 84443; 85025

== ENCOUNTER 2023-05-01 10:47 | Outpatient (CLI) | payer OTHER ==
--- NOTE | 2023-05-04 07:56 | Mammography Report ---
BILATERAL DIGITAL SCREENING MAMMOGRAM 3D/2D: 05/01/2023 CLINICAL: Routine screening. Personal history of left breast cancer. Comparison is made to exams dated: 04/21/2022 mammogram, 04/26/2021 mammogram, 05/28/2020 mammogram, mammogram, 05/12/2020 breast MRI, and 03/20/2020 mammogram - Located within [facility]. Both breasts are heterogeneously dense, which may obscure small masses (category c / 51-75% glandular tissue). There are benign post operative findings in the left breast. No significant masses, calcifications, or other findings are seen in either breast. There has been no significant interval change. IMPRESSION: BENIGN There is no mammographic evidence of malignancy. A 1 year screening mammogram is recommended. This exam was interpreted at Station ID: [id number]. NOTE: For mammograms, a report in lay terms will be sent to the patient. Approximately 15% of breast malignancies will not be visualized mammographically. In the management of a palpable breast mass, a negative mammogram must not discourage biopsy of a clinically suspicious lesion. Electronically Signed By: Jeff lim/adrienne:05/01/2023 16:05:41 letter sent: No_Letter ACR BI-RADS Category 2: Benign Finding(s) 3342F PARENCHYMAL PATTERN: (D) - The breast(s) demonstrate(s) heterogeneously dense fibroglandular parenchy ma. BI-RADS CATEGORY: (2) - 2 Mammogram [id number] 1 year screening LATERALITY: (B)
== END 2023-05-01 10:48 | disposition home or self-care (01) ==
LOC: DI 10:47
DX: Z12.31 Encounter for screening mammogram for malignant neoplasm of breast (principal); R92.333 Mammographic heterogeneous density, bilateral breasts; Z85.3 Personal history of malignant neoplasm of breast

== ENCOUNTER 2023-06-22 07:34 | Outpatient (CLI) | payer OTHER ==
[2023-06-22 11:53] LABS: BASOPHILS % (AUTO) 0.8 %; EOSINOPHILS # (AUTO) 0.1 10^3/uL (0.0-0.7); EOSINOPHILS % (AUTO) 1.9 %; HCT - HEMATOCRIT 43.3 % (37.0-47.0); HGB - HEMOGLOBIN 13.8 g/dL (12.0-16.0); LYMPHOCYTES # (AUTO) 1.3 10^3/uL (1.5-3.5); LYMPHOCYTES % (AUTO) 34.3 %; MEAN CORPUSCULAR HEMOGLOBIN 29.5 pg (27.0-31.0); MEAN CORPUSCULAR HGB CONC 31.9 g/dL (32.0-36.0); MEAN CORPUSCULAR VOLUME 92.5 fL (81.0-99.0); MONOCYTES # (AUTO) 0.2 10^3/uL (0.0-1.0); MONOCYTES % (AUTO) 5.7 %; NEUTROPHILS # (AUTO) 2.1 10^3/uL (1.5-6.6); PLT - PLATELET COUNT 258 10^3/uL (130-450); RED BLOOD COUNT 4.68 10^6/uL (4.20-5.40); WHITE BLOOD COUNT 3.7 x10^3/uL (4.8-10.8)
[2023-06-22 12:35] LABS: THYROID STIMULATING HORMONE 2.48 uIU/mL (0.34-5.60)
[2023-06-22 13:09] LABS: ALBUMIN 4.7 g/dL (3.2-5.5); ALKALINE PHOSPHATASE 66 IU/L (42-121); ALT ALANINE AMINOTRANSFERASE 10 IU/L (10-60); AST ASPARTATE AMINOTRANSFERASE 13 IU/L (10-42); BILIRUBIN,TOTAL 0.7 mg/dL (0.2-1.0); BUN - BLOOD UREA NITROGEN 11 mg/dL (6-20); CALCIUM 9.9 mg/dL (8.5-10.3); CARBON DIOXIDE - CO2 29 mmol/L (21-32); CHLORIDE 105 mmol/L (101-111); CHOL/HDL RATIO 4.4 (<4.4); CHOLESTEROL 202 mg/dL; CREATININE 0.7 mg/dL (0.6-1.3); GFR - MDRD 86 (>89); GLUCOSE 97 mg/dL (74-104); HDL CHOLESTEROL 46 mg/dL; LDL CHOLESTEROL,CALCULATED 100 mg/dL; LDL/HDL RATIO 2.2 (<4.4); POTASSIUM 4.4 mmol/L (3.5-4.5); SODIUM 140 mmol/L (135-145); TOTAL PROTEIN 7.1 g/dL (6.4-8.9); TRIGLYCERIDES 280 mg/dL (48-352); VLDL CHOLESTEROL 56 mg/dL
== END 2023-06-22 07:35 | disposition home or self-care (01) ==
LOC: LAB.N 07:34
PROVIDERS: ATTEND Nurse Practitioner
DX: I10 Essential (primary) hypertension (principal); E78.1 Pure hyperglyceridemia; R53.83 Other fatigue
CPT/HCPCS: 36415; 80053; 80061; 83721; 84443; 85025

== ENCOUNTER 2023-10-14 07:49 | Day surgery (SDC) | payer OTHER ==
[2023-10-14] MEDS: LACTATED RINGERS 1,000 ML IV ONE (08:09)
--- NOTE | 2023-10-14 08:20 | ANESTHESIA ---
Pre-Anesthesia VS, & Labs - Diagnosis GASTRIC METAPLASIA - Procedure EGD Vital Signs: Temp Pulse Resp BP Pulse Ox O2 Flow Rate 36.9 C 103 H 18 128/87 H 100 10/14/23 08:00 10/14/23 08:00 10/14/23 08:00 10/14/23 08:00 10/14/23 08:00 Height: 5 ft 9 in Weight (kg): 64.3 kg Body Mass Index: 20.9 BMI Classification: Normal - Is Patient ?: No (POST MENOPAUSAL) Home Medications and Allergies Home Medications: Ambulatory Orders Famotidine [Acid-Pep] 20 mg PO DAILY 10/13/23 Famotidine [Acid-Pep] 20 mg PO DAILY 10/13/23 Allergies/Adverse Reactions: Allergies Allergy/AdvReac Type Severity Reaction Status Date / Time No Known Drug Allergies Allergy Verified 10/14/23 08:03 Anes History & Medical History - Anesthetic History Anesthesia Complications: reports: No previous complications Family history of Anesthesia Complications: Denies - Medical History Cardiovascular: reports: Hypertension (DENIES FREQUENT HTN, DOES NOT TAKE MEDS), High cholesterol Pulmonary: reports: None Gastrointestinal: reports: GERD (DOES NOT HAVE TO SLEEP ELEVATED ON PILLOWS, DENIES REFLUX WHILE SLEEPING) Urinary: reports: None Neuro: reports: None Musculoskeletal: reports: None Endocrine/Autoimmune: reports: None Blood Disorders: reports: None Skin: reports: None Smoking Status: Never smoker Psychosocial: reports: No issues indicated - Surgical History General: reports: Cholecystectomy, Colonoscopy, EGD, Other Gynecologic: reports: Hysterectomy, Other Results - EKG Results EKG Comparison: Reviewed EKG Exam General: Alert Dental: Dentures full Upper, Dentures full Lower (WILL REMOVE FOR PROCEDURE) Mouth Openin Fingerbreadth Neck Mobility: Normal Mallampati classification: II Thyromental Distance: 4-6 cm Plan Anesthesia Type: Total IV Consent for Procedure(s) Verified and Reviewed: Yes Code Status: Attempt Resuscitation ASA classification: 2-Mild systemic disease Is this case an emergency?: No
[2023-10-14] MEDS ORDERED: PROPOFOL 500 MG/50 ML 500 MG/50 ML VIAL ONE (08:27)
[2023-10-14] MEDS ORDERED: LIDOCAINE-MPF 2% 5 ML VIAL ONE (08:27)
[2023-10-14] MEDS ORDERED: MIDAZOLAM 2 MG/2 ML VIAL ONE (08:36)
[2023-10-14] MEDS: LACTATED RINGERS 100 ML IV ONE (09:45)
[2023-10-14 10:11] VITALS: BP 106/72; O2SAT 98
--- NOTE | 2023-10-14 11:11 | ANESTHESIA POST OP EVALUATION ---
Anesthesia Post Eval - Post Anesthesia Eval Vitals: Last Vital Signs Temp 36.8 C 10/14/23 10:03 Pulse 74 10/14/23 10:03 Resp 18 10/14/23 10:03 BP 106/72 10/14/23 10:03 Pulse Ox 98 10/14/23 10:03 O2 Flow Rate CV Function Including HR & BP: Stable Pain Control: Satisfactory Nausea & Vomiting: Negative Mental Status: Baseline Respiratory Status: Airway Patent Hydration Status: Satisfactory Anesthesia Complications: None
== END 2023-10-14 07:50 | disposition home or self-care (01) ==
LOC: SDS 07:49
PROVIDERS: ATTEND Surgery
PROC: 0DB78ZX Excision of Stomach, Pylorus, Via Natural or Artificial Opening Endoscopic, Diagnostic (ICD-10-PCS; 2023-10-14)
PROC: 0DB68ZX Excision of Stomach, Via Natural or Artificial Opening Endoscopic, Diagnostic (ICD-10-PCS; principal; 2023-10-14 09:30)
DX: K31.A15 Gastric intestinal metaplasia without dysplasia, involving multiple sites (principal); K29.50 Unspecified chronic gastritis without bleeding; I10 Essential (primary) hypertension; K21.9 Gastro-esophageal reflux disease without esophagitis; Z90.49 Acquired absence of other specified parts of digestive tract
CPT/HCPCS: 43239; J7120